=== PATIENT | male | born 1980 ===

== ENCOUNTER 2018-02-14 11:31 | Inpatient (IN) | payer OTHER, SELFPAY ==
[2018-02-14] MEDS ORDERED: Morphine 4 MG/ML VIAL ONE ×2 (11:59→13:41)
--- NOTE | 2018-02-14 11:59 | ED PDOC ---
HPI: General Adult Time Seen by Provider: 02/14/18 11:45 Chief Complaint (Nursing): Lower Extremity Problem/Injury Chief Complaint (Provider): right leg pain History Per: Patient, EMS, Other (co-worker) History/Exam Limitations: language barrier Onset/Duration Of Symptoms: Other (just prior to ED arrival) Have you had recent travel within the past 21 days to any of the following countries: [place], [place], [place] or [place]?: No Current Symptoms Are (Timing): Still Present Severity: Severe Pain Scale Rating Of: 6 Location: right leg Recent Trauma: no Additional History Per: EMS (and co-worker) Additional Complaint(s): Pt p/w + s/p wood beam fell on patient while at work, just prior to ED arrival; pt + felt immediate right leg pain; unable to stand; + intact sensations, no fever/chills/sweats, no cp/sob/palpitations, no abd pain, no n/v, no numbness/ tingling, no urinary/bowel changes, no bleeding; pt is here for further eval pt's without other complaints. PCP: none Past Medical History Reviewed: Historical Data, Nursing Documentation, Vital Signs Vital Signs: Last Vital Signs Temp 98.9 F 02/14/18 16:17 Pulse 90 02/14/18 17:35 Resp 18 02/14/18 17:35 BP 129/68 02/14/18 16:17 Pulse Ox 99 02/14/18 17:35 - Medical History PMH: Denies: Chronic Kidney Disease - Surgical History Other surgeries: right finger amputation - Family History Family History: States: Unknown Family Hx - Living Arrangements Living Arrangements: Alone - Social History Current smoker - smoking cessation education provided: No Ex-Smoker (has not smoked in the last 12 months): No Alcohol: None Drugs: Denies - Home Medications Home Medications: Ambulatory Orders Medication Instructions Recorded No Known Home Med 02/14/18 - Allergies Allergies/Adverse Reactions: Allergies Allergy/AdvReac Type Severity Reaction Status Date / Time No Known Allergies Allergy Verified 01/01/17 22:11 Review of Systems ROS Statement: Except As Marked, All Systems Reviewed And Found Negative Constitutional: Negative for: Fever, Weakness Eyes: Negative for: Pain ENT: Negative for: Ear Pain Cardiovascular: Negative for: Chest Pain Respiratory: Negative for: Cough, Shortness of Breath, SOB with Exertion Gastrointestinal: Negative for: Nausea, Vomiting, Abdominal Pain Musculoskeletal: Positive for: Other (right leg pain) Skin: Negative for: Rash Neurological: Negative for: Weakness Physical Exam - Reviewed Nursing Documentation Reviewed: Yes Vital Signs Reviewed: Yes (WNL) - Physical Exam Appears: Positive for: Well, Non-toxic, Uncomfortable (resting in bed, cooperative, NAD, uncomfortable, alert/awake, GCS=15, oriented x 3) Head Exam: Positive for: ATRAUMATIC, NORMAL INSPECTION, NORMOCEPHALIC Skin: Positive for: Normal Color (cap refill < 1sec, no ulcerations, no petechiae, no rashes), Warm, Dry Eye Exam: Positive for: Normal appearance, EOMI, PERRL ENT: Positive for: Normal ENT Inspection Neck: Positive for: Normal, Supple, Trachea Midline Cardiovascular/Chest: Positive for: Regular Rate, Rhythm, Chest Non Tender. Negative for: Murmur Respiratory: Positive for: Normal Breath Sounds, Other (CTA b/l, no w/r/r, no accessory muscle use noted, no tachypenia) Gastrointestinal/Abdominal: Positive for: Normal Exam, Bowel Sounds, Soft. Negative for: Tenderness Back: Positive for: Normal Inspection. Negative for: L CVA Tenderness, R CVA Tenderness Extremity: Positive for: Other (right distal tib/fib gross deformities noted; no open wounds/sores, no skin tinting noted, decr ROM to right knee/ankle; intact ROM to right toes, neurovasc intact b/l, +2/2 pulses b/l) Neurologic/Psych: Positive for: Alert, director of quality II-XII, Oriented - Laboratory Results Result Diagrams: 02/14/18 12:03 02/14/18 12:03 Interpretation Of Abnormal: elevated GLUC/CK - ECG ECG: Positive for: Interpreted By Me Interpretation Of ECG: NSR at 90 bpm, normal axis, no ectopy, no st-t changes, NORMAL EKG; no old ekg to compare with O2 Sat by Pulse Oximetry: 100 Pulse Ox Interpretation: Normal - Radiology X-Ray: Viewed By Me, Read By Radiologist - Progress ED Course And Treament: pt received pain medications, felt improved, states pain if not moved is tolerable 1:00pm - i spoke to ortho ordnance truck installation mechanic, made aware, will see patient, recommend patient to be temp casted with ortho glass with lots of webroll, to contact ortho pa, and will see patient; would like pt admitted to medicine 1:20pm - i spoke to bharat Miller, made aware, he will speak to ortho attending , but he is not ordnance truck installation mechanic currently 1:30pm - ortho ordnance truck installation mechanic suggests contacting podiatry resident, and would like a dedicated ankle xray 2:00pm - spoke to podiatry resident, will see patient 2:25pm - with podiatry residents assistance, able to secure a temp cast on pt's right lower leg with post splint technique using 5inch orthoglass 2:30pm - teacher of family and consumer science contacted, made aware, will see patient, agrees with admission repeate eval of b/l lower ext, + distal pulses noted, no skin discoloration, no gross swelling noted pt is comfortable after the splint pt is made aware of his medical results agrees with admission Re-evaluation Time: 14:00 Condition: Improving,but remains with symptoms - Physician Consult Information Time Consulting Physican Contacted: 13:00 Physician Contacted: Humza Mancia III (made aware, would like images txt to him and would like the bharat KIRKLAND contacted) Medical Decision Making Medical Decision Making: Impression: right leg pain i have consider all the differential diagnosis regarding pt's chief medical complaints/clinical findings, including but are not limited to: right leg pain A/P: right leg pain - labs - iv - xray - pain control - supportive care - observe Disposition - Clinical Impression Clinical Impression: Fracture of tibia, Closed fracture of shaft of tibia with fibula - Patient ED Disposition Is Patient to be Admitted: Yes Discussed With : family med Counseled Patient/Family Regarding: Studies Performed, Diagnosis, Rx Given - Disposition Disposition Time: 14:30 Condition: STABLE - Pt Status Changed To: Hospital Disposition Of: Inpatient - Admit Certification Admit to Inpatient:: After my assessment, the patient will require hospitalization for at least two midnights. This is because of the severity of symptoms shown, intensity of services needed, and/or the medical risk in this patient being treated as an outpatient.
[2018-02-14 12:16] LABS: BASO # 0.1 K/uL (0.0-0.2); BASO % 0.7 % (0.0-2.0); EOS # 0.1 K/uL (0.0-0.7); EOS % 0.7 % (0.0-4.0); HEMOGLOBIN 15.7 g/dL (12.0-18.0); LYMPH # 2.5 K/uL (1.0-4.3); MEAN CELL VOLUME 89.7 fl (80.0-94.0); MEAN CORPUSCULAR HEMOGLOBIN 30.3 pg (27.0-31.0); MEAN CORPUSCULAR HGB CONC 33.8 g/dL (33.0-37.0); MEAN PLATELET VOLUME 8.7 fl (7.2-11.7); MONO # 0.6 K/uL (0.0-0.8); MONO % 7.8 % (0.0-10.0); NEUT % 55.8 % (50.0-75.0); NRBC % 0.1 % (0.0-0.0); RBC 5.19 Mil/uL (4.40-5.90); RED CELL DISTRIBUTION WIDTH 13.9 % (11.5-14.5); WHITE BLOOD COUNT 7.2 K/uL (4.8-10.8)
[2018-02-14 12:21] LABS: INR 0.9 (0.9-1.2); PARTIAL THROMBOPLASTIN TIME 30.7 Seconds (25.6-37.1); PROTHROMBIN TIME 9.7 Seconds (9.8-13.1)
[2018-02-14 12:26] LABS: BLOOD UREA NITROGEN 25 mg/dl (9-20); GFR AFRICAN-AMERICAN > 60; GFR NON-AFRICAN AMERICAN > 60
--- NOTE | 2018-02-14 13:26 | RAD ---
PROCEDURE: Pelvis and right hip HISTORY: wood beam fell on leg COMPARISON: February 14, 2018. TECHNIQUE: Standard protocol for this study/examination. FINDINGS: There are no osseous abnormalities to suggest fracture. The pelvic ring is intact. Preserved femoral-acetabular relationship. Negative study for protrusio, subluxation or dislocation. Degenerative changes: None. IMPRESSION: No significant or acute findings to account for/ related to the clinical presentation.
--- NOTE | 2018-02-14 13:27 | RAD ---
PROCEDURE: Right Knee Radiographs. HISTORY: wood crain fell on leg COMPARISON: February 14, 2018. FINDINGS: BONES: Oblique proximal right fibular fracture. Major fracture fragments are distracted approximately 1 shaft's width. No appreciable angulation or impaction. JOINTS: Normal. No osteoarthritis. JOINT EFFUSION: None. OTHER FINDINGS: None. IMPRESSION: Acute spiral fracture non articular pillar proximal right fibula.
--- NOTE | 2018-02-14 13:28 | RAD ---
PROCEDURE: Radiographs of the right tibia and fibula. HISTORY: wood beam fell on leg COMPARISON: February 14, 2018. . TECHNIQUE: Frontal and lateral views obtained. FINDINGS: BONES: Oblique fractures of the proximal right fibula and distal tibia (Maisonneuve fracture. ) One shaft's with displacement of proximal fibular fracture. Half shaft's with displacement of the distal tibial fracture. Major fracture fragments are otherwise anatomically aligned. JOINT SPACES: Unremarkable. OTHER FINDINGS: None. IMPRESSION: Acute fractures distal right tibia at proximal right fibula.
--- NOTE | 2018-02-14 13:42 | RAD ---
PROCEDURE: Right Ankle Radiographs. HISTORY: wood beam fell on him COMPARISON: February 14, 2018. FINDINGS: BONES: Obliques fracture of the distal tibia. Approximately 1 shaft's with displacement of the major fracture fragments. More distal oblique fracture of the distal fibula. No appreciable angulation, impaction or distraction JOINTS: Normal. No osteoarthritis. Ankle mortise maintained. Talar dome intact SOFT TISSUES: Soft tissue swelling attests to the acuity of the fracture. OTHER FINDINGS: None. IMPRESSION: Spiral and acute fractures distal right tibia and fibula.
--- NOTE | 2018-02-14 14:37 | CP.PCM.CON ---
History of Present Illness - History of Present Illness History of Present Illness: Orthopedic Consult Note- Dr. Mancia 38 y/o male seen in ED after consultation for right leg injury. 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 Immediately was in significant pain and was unable to walk or bear weight. At present, denies numbness, tingling or burning in the leg. States his pain is a 6 out of 10. Denies F/C/N/V/CP/SOB PMHx: denies PSHx: appendectomy All: NKDA Social: denies EtOH, cigarette or drug use Review of Systems - Review of Systems All systems: reviewed and no additional remarkable complaints except (per HPI) Past Patient History - Past Medical History & Family History Past Medical History?: No - Past Social History Alcohol: None Drugs: Denies - CARDIAC Hx Cardiac Disorders: No - PULMONARY Hx Respiratory Disorders: No - NEUROLOGICAL Hx Neurological Disorder: No - HEENT Hx HEENT Problems: No - RENAL Hx Chronic Kidney Disease: No - ENDOCRINE/METABOLIC Hx Endocrine Disorders: No - HEMATOLOGICAL/ONCOLOGICAL Hx Blood Disorders: No - INTEGUMENTARY Hx Dermatological Problems: No - MUSCULOSKELETAL/RHEUMATOLOGICAL Hx Musculoskeletal Disorders: No - GASTROINTESTINAL Hx Gastrointestinal Disorders: No - GENITOURINARY/GYNECOLOGICAL Hx Genitourinary Disorders: No - PSYCHIATRIC Hx Psychophysiologic Disorder: No Hx Substance Use: No - SURGICAL HISTORY Hx Surgeries: No - ANESTHESIA Hx Anesthesia: No Hx Anesthesia Reactions: No Meds Allergies/Adverse Reactions: Allergies Allergy/AdvReac Type Severity Reaction Status Date / Time No Known Allergies Allergy Verified 01/01/17 22:11 Physical Exam - Constitutional Appears: Well, Non-toxic, No Acute Distress - Extremities Exam Additional comments: RLE focused exam: Vasc: DP/PT pulses 2/4. Temperature gradient warm to warm. CFT < 3 sec to all digits. Significant edema noted to RLE extending from tibial tuberosity to ankle joint. No cyanotic or ischemic skin changes evident Derm: no open lesions, no erythema, no ecchymosis, no fracture blisters, skin and soft tissue intact Ortho: Moderate tenderness to palpation of RLE distal to tibial tuberosity. Gross osseous deformity noted to mid level of tibia-fibula. Pt is able to dorsiflex at ankle joint, limited due to guarding. Pt able to wiggle toes Neuro: protective sensation grossly intact Results - Vital Signs Recent Vital Signs: Last Vital Signs Temp 97.4 F L 02/14/18 11:33 Pulse 71 02/14/18 11:33 Resp 16 02/14/18 11:33 BP 127/74 02/14/18 11:33 Pulse Ox 100 02/14/18 14:00 - Labs Result Diagrams: 02/14/18 12:03 02/14/18 12:03 Labs: Laboratory Results - last 24 hr 02/14/18 02/14/18 02/14/18 12:03 12:03 12:03 WBC 7.2 RBC 5.19 Hgb 15.7 Hct 46.5 MCV 89.7 MCH 30.3 MCHC 33.8 RDW 13.9 Plt Count 250 MPV 8.7 Neut % (Auto) 55.8 Lymph % (Auto) 35.0 [place] % (Auto) 7.8 Eos % (Auto) 0.7 Baso % (Auto) 0.7 Neut # (Auto) 4.0 Lymph # (Auto) 2.5 [place] # (Auto) 0.6 Eos # (Auto) 0.1 Baso # (Auto) 0.1 PT 9.7 L INR 0.9 APTT 30.7 Sodium 147 Potassium 4.1 Chloride 108 H Carbon Dioxide 23 Anion Gap 20 BUN 25 H Creatinine 1.0 Est GFR ( Amer) > 60 Est GFR (Non-Af Amer) > 60 Random Glucose 152 H Calcium 9.0 Total Creatine Kinase 190 H Assessment & Plan - Assessment and Plan (Free Text) Assessment: 38 y/o male with RLE comminuted proximal fibula fx, oblique distal fibula fx and displaced oblique distal tibia fx secondary to trauma Plan: Pt seen and evaluated in ED Posterior splint to RLE with crutches Pt not a good candidate for immediate surgical intervention due to significant edema Will monitor and proceed once swelling has decreased Discussed with attending Dr. Mancia Pt to be admitted under family medicine service and will be followed closely
--- NOTE | 2018-02-14 15:34 | CP.PCM.HP ---
<Devonte Holt - Last Filed: 02/14/18 15:48> History of Present Illness - History of Present Illness History of Present Illness: Pawan is a pleasant 38 yo M with no significant pmhx presents to the ED after sustaining an injury to his R lower extremity. He reports that while at work, he was repositioning when a wooden beam fell and hit his R leg below the knee. He reports falling afterwards. Pain was sharp, localized, 10/10. Denies open wound, bleeding, loss of ipsilateral leg/foot sensation, numbness, tingling. His gait and ability to bear weight is limited secondary to the injury. He denies CP/SOB/N/V. [facility] was [facility]. They evaluated the pt and placed a splint. With follow up XR and CT. PCP: Dr. Mclaughlin : [place] [phone] Pmhx: inguinal lymphadenopathy Psurg: appendectomy 2016 Famhx: none soc: lives at home with and daughter; denies: smoking, alcohol, illicit drugs Rx: none NKDA ER course: Vitals: 97.4 F; 71 bpm; 127/74; rr 16; 100 ra -XR knee: Acute spiral fracture non articular pillar proximal right fibula. -XR ankle: Spiral and acute fractures distal right tibia and fibula. -XR hip/pelvis: No significant or acute findings to account for/ related to the clinical presentation. -XR tibia/fibula: Acute fractures distal right tibia at proximal right fibula. -XR ankle f/u: s/p splint: pending -CT lower ext: s/p splint: pending official report -Rx: Morphine 4 mg IVP x2 -Admit to med surg Present on Admission - Present on Admission Any Indicators Present on Admission: No Review of Systems - Constitutional Constitutional: As Per HPI - Cardiovascular Cardiovascular: absent: Chest Pain, Lightheadedness, Palpitations - Respiratory Respiratory: absent: Cough, Dyspnea - Gastrointestinal Gastrointestinal: absent: Abdominal Pain, Constipation, Diarrhea, Nausea, Vomiting - Genitourinary Genitourinary: absent: Hematuria - Musculoskeletal Musculoskeletal: Abnormal Gait (2/2 injury), Radiating Pain into Limb. absent: Numbness, Tingling - Neurological Neurological: Abnormal Gait. absent: Headaches Past Patient History - Past Medical History & Family History Past Medical History?: No - Past Social History Smoking Status: Never Smoked Alcohol: None Drugs: Denies - CARDIAC Hx Cardiac Disorders: No - PULMONARY Hx Respiratory Disorders: No - NEUROLOGICAL Hx Neurological Disorder: No - HEENT Hx HEENT Problems: No - RENAL Hx Chronic Kidney Disease: No - ENDOCRINE/METABOLIC Hx Endocrine Disorders: No - HEMATOLOGICAL/ONCOLOGICAL Hx Blood Disorders: No - INTEGUMENTARY Hx Dermatological Problems: No - MUSCULOSKELETAL/RHEUMATOLOGICAL Hx Musculoskeletal Disorders: No - GASTROINTESTINAL Hx Gastrointestinal Disorders: No - GENITOURINARY/GYNECOLOGICAL Hx Genitourinary Disorders: No - PSYCHIATRIC Hx Psychophysiologic Disorder: No Hx Substance Use: No - SURGICAL HISTORY Hx Surgeries: Yes Hx Appendectomy: Yes - ANESTHESIA Hx Anesthesia: No Hx Anesthesia Reactions: No Meds Allergies/Adverse Reactions: Allergies Allergy/AdvReac Type Severity Reaction Status Date / Time No Known Allergies Allergy Verified 01/01/17 22:11 Physical Exam - Constitutional Appears: Well, No Acute Distress - Head Exam Head Exam: ATRAUMATIC - Eye Exam Eye Exam: EOMI - Neck Exam Neck exam: Positive for: Full Rom - Respiratory Exam Respiratory Exam: Clear to Auscultation Bilateral, NORMAL BREATHING PATTERN. absent: Wheezes - Cardiovascular Exam Cardiovascular Exam: REGULAR RHYTHM, +S1, +S2. absent: Systolic Murmur - GI/Abdominal Exam GI & Abdominal Exam: Normal Bowel Sounds - Neurological Exam Neurological exam: Abnormal Gait (R lower extremity: fracture: currently splint with wrapping by podiatry. Pt sensation to lower extremity intact. moves toes. able to lift lower extremity. cap refill <2 s), Alert, CN II-XII Intact, Oriented x3 - Psychiatric Exam Psychiatric exam: Normal Affect, Normal Mood Results - Vital Signs Recent Vital Signs: Last Vital Signs Temp 97.4 F L 02/14/18 11:33 Pulse 71 02/14/18 11:33 Resp 16 02/14/18 11:33 BP 127/74 02/14/18 11:33 Pulse Ox 100 02/14/18 14:00 - Labs Result Diagrams: 02/14/18 12:03 02/14/18 12:03 Labs: Laboratory Results - last 24 hr 02/14/18 02/14/18 02/14/18 12:03 12:03 12:03 WBC 7.2 RBC 5.19 Hgb 15.7 Hct 46.5 MCV 89.7 MCH 30.3 MCHC 33.8 RDW 13.9 Plt Count 250 MPV 8.7 Neut % (Auto) 55.8 Lymph % (Auto) 35.0 [place] % (Auto) 7.8 Eos % (Auto) 0.7 Baso % (Auto) 0.7 Neut # (Auto) 4.0 Lymph # (Auto) 2.5 [place] # (Auto) 0.6 Eos # (Auto) 0.1 Baso # (Auto) 0.1 PT 9.7 L INR 0.9 APTT 30.7 Sodium 147 Potassium 4.1 Chloride 108 H Carbon Dioxide 23 Anion Gap 20 BUN 25 H Creatinine 1.0 Est GFR ( Amer) > 60 Est GFR (Non-Af Amer) > 60 Random Glucose 152 H Calcium 9.0 Total Creatine Kinase 190 H Assessment & Plan - Assessment and Plan (Free Text) Assessment: 38 M with no significant pmhx presents with fractures to R fibula and tibia Plan: R Tibia and Fibia fractures -XR knee: Acute spiral fracture non articular pillar proximal right fibula. -XR ankle: Spiral and acute fractures distal right tibia and fibula. -XR hip/pelvis: No significant or acute findings to account for/ related to the clinical presentation. -XR tibia/fibula: Acute fractures distal right tibia at proximal right fibula. -XR ankle f/u: s/p splint: pending -CT lower ext: s/p splint: pending official report -s/p Rx: Morphine 4 mg IVP x2 ER -Morphine 4 mg IV q4 -Admit to med surg -Podiatry/Ortho: Pending surgery -non weight bearing -neuro check q 8 for R lower extremity -Surg clearance: CXR, EKG, PT/T INR, CBC, CMP DVT prophylaxis: - contraindication: pending surgery - non weight bearing <Roxi Jane - Last Filed: 02/15/18 09:47> Results - Vital Signs Recent Vital Signs: Last Vital Signs Temp 98.1 F 02/15/18 08:19 Pulse 86 02/15/18 08:19 Resp 18 02/15/18 08:19 BP 109/65 02/15/18 08:19 Pulse Ox 94 L 02/15/18 08:19 - Labs Result Diagrams: 02/15/18 05:05 02/15/18 05:05 Labs: Laboratory Results - last 24 hr 02/14/18 02/14/18 02/14/18 08:00 12:03 12:03 WBC 7.2 RBC 5.19 Hgb 15.7 Hct 46.5 MCV 89.7 MCH 30.3 MCHC 33.8 RDW 13.9 Plt Count 250 MPV 8.7 Neut % (Auto) 55.8 Lymph % (Auto) 35.0 [place] % (Auto) 7.8 Eos % (Auto) 0.7 Baso % (Auto) 0.7 Neut # (Auto) 4.0 Lymph # (Auto) 2.5 [place] # (Auto) 0.6 Eos # (Auto) 0.1 Baso # (Auto) 0.1 PT INR APTT Sodium 147 Potassium 4.1 Chloride 108 H Carbon Dioxide 23 Anion Gap 20 BUN 25 H Creatinine 1.0 Est GFR ( Amer) > 60 Est GFR (Non-Af Amer) > 60 Random Glucose 152 H Calcium 9.0 Total Bilirubin AST ALT Alkaline Phosphatase Total Creatine Kinase 190 H Total Protein Albumin Globulin Albumin/Globulin Ratio Urine Color Yellow Urine Clarity Slighty-cloudy Urine pH 5.0 Ur Specific [place] 1.031 H Urine Protein Negative Urine Glucose (UA) 50 Urine Ketones Negative Urine Blood Negative Urine Nitrate Negative Urine Bilirubin Negative Urine Urobilinogen 0.2-1.0 Ur Leukocyte Esterase Neg Urine RBC (Auto) 36 H Urine Microscopic WBC 3 Ur Squamous Epith Cells < 1 Calcium Oxalate Crystal Many H Hyaline Casts 0-2 Blood Type Antibody Screen BBK History Checked 02/14/18 02/14/18 02/14/18 12:03 16:00 16:00 WBC RBC Hgb Hct MCV MCH MCHC RDW Plt Count MPV Neut % (Auto) Lymph % (Auto) [place] % (Auto) Eos % (Auto) Baso % (Auto) Neut # (Auto) Lymph # (Auto) [place] # (Auto) Eos # (Auto) Baso # (Auto) PT 9.7 L 10.6 INR 0.9 1.0 APTT 30.7 30.0 Sodium Potassium Chloride Carbon Dioxide Anion Gap BUN Creatinine Est GFR ( Amer) Est GFR (Non-Af Amer) Random Glucose Calcium Total Bilirubin AST ALT Alkaline Phosphatase Total Creatine Kinase Total Protein Albumin Globulin Albumin/Globulin Ratio Urine Color Urine Clarity Urine pH Ur Specific [place] Urine Protein Urine Glucose (UA) Urine Ketones Urine Blood Urine Nitrate Urine Bilirubin Urine Urobilinogen Ur Leukocyte Esterase Urine RBC (Auto) Urine Microscopic WBC Ur Squamous Epith Cells Calcium Oxalate Crystal Hyaline Casts Blood Type O POSITIVE Antibody Screen Negative BBK History Checked No verified bt 02/15/18 02/15/18 05:05 05:05 WBC 10.1 RBC 4.79 Hgb 14.6 Hct 43.2 MCV 90.1 MCH 30.5 MCHC 33.8 RDW 14.1 Plt Count 226 MPV 9.1 Neut % (Auto) 62.3 Lymph % (Auto) 24.9 [place] % (Auto) 12.3 H Eos % (Auto) 0.2 Baso % (Auto) 0.3 Neut # (Auto) 6.3 Lymph # (Auto) 2.5 [place] # (Auto) 1.2 H Eos # (Auto) 0.0 Baso # (Auto) 0.0 PT INR APTT Sodium 143 Potassium 3.8 Chloride 103 Carbon Dioxide 27 Anion Gap 17 BUN 17 Creatinine 0.9 Est GFR ( Amer) > 60 Est GFR (Non-Af Amer) > 60 Random Glucose 118 H Calcium 8.9 Total Bilirubin 1.0 AST 34 ALT 78 H D Alkaline Phosphatase 75 Total Creatine Kinase Total Protein 6.9 Albumin 3.9 Globulin 3.0 Albumin/Globulin Ratio 1.3 Urine Color Urine Clarity Urine pH Ur Specific [place] Urine Protein Urine Glucose (UA) Urine Ketones Urine Blood Urine Nitrate Urine Bilirubin Urine Urobilinogen Ur Leukocyte Esterase Urine RBC (Auto) Urine Microscopic WBC Ur Squamous Epith Cells Calcium Oxalate Crystal Hyaline Casts Blood Type Antibody Screen BBK History Checked - PA / BILINGUAL CASE MANAGER / Resident Statement MARIELA has reviewed & agrees with the documentation as recorded. / has examined the patient and agrees with the treatment plan. (ATTENDING NOTE - ATTESTATION. PATIENT SEEN AND EXAMINED. CASE DISCUSSED WITH RESIDENT AGREE WITH FINDINGS AND PLAN)
--- NOTE | 2018-02-14 16:17 | CT ---
PROCEDURE: Right lower extremity CT HISTORY: Fracture right tibia and fibula COMPARISON: February 14, 2018. TECHNIQUE: 2.5 mm axial acquisition and display. Coronal and sagittal reconstructions. 3 volume rendering supplemental images Dose report (mGy-cm): 260.49 FINDINGS: 1. Comminuted fracture of the proximal fibula. The major fracture fragments demonstrate approximately 1 shaft's with separation. 2. Oblique fracture of the distal fibula, including comminuted without appreciable impaction, distraction, angulation. 3. Oblique distal fibular fracture displaying comminution and approximately 1/2 shaft's with over riding. No appreciable angulation, impaction or distraction. 4. Linear fracture through the distal fibula with an intra-articular component the of finding best visualized on axial series 3 images 159- 161. No disruption of the ankle mortise. No abnormalities with respect to the talus including the talar dome. Talotibial, talofibular articular relationships are maintained. No abnormalities visualize calcaneus. Diffuse soft tissue swelling at the fracture sites. Small suprapatellar joint effusion. IMPRESSION: Multiple fractures right tibia and fibula anatomically described above. The fracture not previously identified on plain film radiographs is the linear nondisplaced fracture of the distal tibia with an intra-articular component.
--- NOTE | 2018-02-14 16:25 | RAD ---
PROCEDURE: Right Ankle Radiographs. HISTORY: Postreduction radiographs COMPARISON: None FINDINGS: BONES: Improved anatomic alignment of distal tibial and fibular fractures. JOINTS: Normal. No osteoarthritis. Ankle mortise maintained. Talar dome intact SOFT TISSUES: Normal. OTHER FINDINGS: None. IMPRESSION: Improved anatomic alignment status post close reduction of right tibial and fibular fractures. Limitations of the current study: Detail obscured by overlying fiberglass cast.
[2018-02-14 16:37] LABS: PROTHROMBIN TIME 10.6 Seconds (9.8-13.1)
[2018-02-14] MEDS ORDERED: Influenza Vaccine 18yr & older 0.5 ML/45 MCG SYR IM ONE (18:30)
[2018-02-15] MEDS ORDERED: Sodium Chloride 0.9% 1,000 ML IV SCH
[2018-02-15] MEDS: Morphine 4 MG/ML VIAL IVP PRN ×3 (02:40→20:18)
[2018-02-15 07:37] LABS: BASO % 0.3 % (0.0-2.0); EOS % 0.2 % (0.0-4.0); HEMOGLOBIN 14.6 g/dL (12.0-18.0); LYMPH # 2.5 K/uL (1.0-4.3); LYMPH % 24.9 % (20.0-40.0); MEAN CELL VOLUME 90.1 fl (80.0-94.0); MEAN CORPUSCULAR HEMOGLOBIN 30.5 pg (27.0-31.0); MEAN CORPUSCULAR HGB CONC 33.8 g/dL (33.0-37.0); MEAN PLATELET VOLUME 9.1 fl (7.2-11.7); MONO # 1.2 K/uL (0.0-0.8); MONO % 12.3 % (0.0-10.0); NEUT # 6.3 K/uL (1.8-7.0); NEUT % 62.3 % (50.0-75.0); RBC 4.79 Mil/uL (4.40-5.90); RED CELL DISTRIBUTION WIDTH 14.1 % (11.5-14.5); WHITE BLOOD COUNT 10.1 K/uL (4.8-10.8)
[2018-02-15 07:49] LABS: ALB/GLOB RATIO 1.3 (1.0-2.1); ALBUMIN 3.9 g/dL (3.5-5.0); ALT/SGPT 78 U/L (21-72); AST/SGOT 34 U/L (17-59); BLOOD UREA NITROGEN 17 mg/dl (9-20); CALCIUM 8.9 mg/dL (8.4-10.2); GFR AFRICAN-AMERICAN > 60; GFR NON-AFRICAN AMERICAN > 60
--- NOTE | 2018-02-15 08:27 | CP.PCM.PN ---
<Ashley Rosales - Last Filed: 02/15/18 14:18> Subjective - Date & Time of Evaluation Date of Evaluation: 02/15/18 Time of Evaluation: 08:27 - Subjective Subjective: no overnight events. tolerating pain, well controlled with morphine. Eating/ drinking. Making UOP/BM. Objective - Vital Signs/Intake and Output Vital Signs (last 24 hours): Temp Pulse Resp BP Pulse Ox 98.1 F 86 18 109/65 94 L 02/15/18 08:19 02/15/18 08:19 02/15/18 08:19 02/15/18 08:19 02/15/18 08:19 - Medications Medications: Current Medications Acetaminophen (Tylenol 325mg Tab) 650 mg PO Q6 PRN PRN Reason: Pain, Mild (1-3) Morphine Sulfate (Morphine) 4 mg IVP Q4 PRN PRN Reason: Pain, moderate (4-7) Last Admin: 02/15/18 02:40 Dose: 4 mg - Labs Labs: 02/15/18 05:05 02/15/18 05:05 PT 10.6 Seconds (9.8-13.1) 02/14/18 16:00 INR 1.0 (0.9-1.2) 02/14/18 16:00 APTT 30.0 Seconds (25.6-37.1) 02/14/18 16:00 - Constitutional Appears: Well, No Acute Distress - Head Exam Head Exam: ATRAUMATIC, NORMAL INSPECTION - Eye Exam Eye Exam: Normal appearance - ENT Exam ENT Exam: Mucous Membranes Moist - Neck Exam Neck Exam: Full ROM, Normal Inspection - Respiratory Exam Respiratory Exam: Clear to Ausculation Bilateral - Cardiovascular Exam Cardiovascular Exam: REGULAR RHYTHM - GI/Abdominal Exam GI & Abdominal Exam: Soft. absent: Tenderness - Extremities Exam Extremities Exam: Normal Capillary Refill Additional comments: right LE splinted. motor/sensation grossly intact. - Back Exam Back Exam: NORMAL INSPECTION - Neurological Exam Neurological Exam: Alert, Oriented x3 - Skin Skin Exam: Dry, Warm Assessment and Plan - Assessment and Plan (Free Text) Assessment: A: 38yo M with no PMHx presents admitted for R tib-fib fx. Plan: OR Mon with Ortho R Tibia and Fibia fractures -XR knee: Acute spiral fracture non articular pillar proximal right fibula. -XR ankle: Spiral and acute fractures distal right tibia and fibula. -XR hip/pelvis: No significant or acute findings to account for/ related to the clinical presentation. -XR tibia/fibula: Acute fractures distal right tibia at proximal right fibula. -XR ankle f/u: s/p splint: improved orientation -CT lower ext: s/p splint: R tib/fib fx -Morphine 2mg or 4mg IV q4 -neuro check q 8 for R lower extremity -Surg clearance: pt medically optimized for surgery -Ortho Dr. Mancia c/s, appreciate input. OR saturday DVT prophylaxis - lovenox <Roxi Jane - Last Filed: 02/16/18 08:57> Objective - Vital Signs/Intake and Output Vital Signs (last 24 hours): Temp Pulse Resp BP Pulse Ox 98.6 F 82 20 105/65 99 02/16/18 08:35 02/16/18 08:35 02/16/18 08:35 02/16/18 08:35 02/16/18 08:35 - Medications Medications: Current Medications Acetaminophen (Tylenol 325mg Tab) 650 mg PO Q6 PRN PRN Reason: Pain, Mild (1-3) Enoxaparin Sodium (Lovenox) 40 mg SC DAILY [facility] PRN Reason: Protocol Last Admin: 02/16/18 08:33 Dose: 40 mg Morphine Sulfate (Morphine) 4 mg IVP Q4 PRN PRN Reason: Pain, moderate (4-7) Last Admin: 02/16/18 05:13 Dose: 4 mg - Labs Labs: 02/15/18 05:05 02/15/18 05:05 PT 10.6 Seconds (9.8-13.1) 02/14/18 16:00 INR 1.0 (0.9-1.2) 02/14/18 16:00 APTT 30.0 Seconds (25.6-37.1) 02/14/18 16:00 Attending/Attestation - Attestation I have personally seen and examined this patient.: Yes I have fully participated in the care of the patient.: Yes I have reviewed all pertinent clinical information, including history, physical exam and plan: Yes Notes (Text): 02/16/18 08:57 ATTENDING NOTE ATTESTATION. PATIENT SEEN AND EXAMINED. CASE DISCUSSED WITH RESIDENT. XRAYS REVIEWED. AGREE WITH FINDINGS AND PLAN.
[2018-02-15 09:27] LABS: SQUAMOUS EPITHIAL < 1 /hpf (0-5); URINE BILIRUBIN NEGATIVE (NEGATIVE); URINE BLOOD NEGATIVE (NEGATIVE); URINE CALCIUM OXALATE CRYSTALS MANY /hpf (<OCC); URINE CLARITY SLIGHTY-CLOUDY (Clear); URINE COLOR YELLOW (YELLOW); URINE GLUCOSE (UA) 50 mg/dL (Normal); URINE HYALINE CAST 0-2 /hpf (0-2); URINE LEUKOCYTE ESTERASE NEG Leu/uL (Negative); URINE PROTEIN NEGATIVE (NEGATIVE); URINE UROBILINOGEN 0.2-1.0 mg/dL (0.2-1.0)
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
--- NOTE | 2018-02-15 10:37 | CP.PCM.PN ---
Subjective - Date & Time of Evaluation Date of Evaluation: 02/15/18 Time of Evaluation: 10:15 - Subjective Subjective: Objective - Vital Signs/Intake and Output Vital Signs (last 24 hours): Temp Pulse Resp BP Pulse Ox 98.1 F 86 18 109/65 94 L 02/15/18 08:19 02/15/18 08:19 02/15/18 08:19 02/15/18 08:19 02/15/18 08:19 - Medications Medications: Current Medications Acetaminophen (Tylenol 325mg Tab) 650 mg PO Q6 PRN PRN Reason: Pain, Mild (1-3) Enoxaparin Sodium (Lovenox) 40 mg SC DAILY [facility] PRN Reason: Protocol Morphine Sulfate (Morphine) 4 mg IVP Q4 PRN PRN Reason: Pain, moderate (4-7) Last Admin: 02/15/18 02:40 Dose: 4 mg - Labs Labs: 02/15/18 05:05 02/15/18 05:05 PT 10.6 Seconds (9.8-13.1) 02/14/18 16:00 INR 1.0 (0.9-1.2) 02/14/18 16:00 APTT 30.0 Seconds (25.6-37.1) 02/14/18 16:00 - Additional Findings Additional findings: Obj systemic- wnl no evidence for thrombvoemboilic disease Muasculoskekltal' astqance/gait- defrred/R lower ext still swollen N/V intact no evidence for compartment ysndrome No increased pain on passive flexion/dorsiflexion Xray/CT scan again reviewed- reveals displaced/comminuted tibial shaft fx and prox and distal fibula fx Assessment and Plan - Assessment and Plan (Free Text) Assessment: A- closed fx: displaced/angulated distal fibula fx/angulated distal 1/3 tibia fx P- elevate/ice to OR Saturday for ORIF tibial shaft fx and ORIF distal fibula fx/ closed mggmt of prox fibula fx pros/cons/risk and benefits 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
[2018-02-15] MEDS: Enoxaparin 40 mg Syringe SC SCH (11:01)
[2018-02-16] MEDS: Morphine 4 MG/ML VIAL IVP PRN ×2 (05:13→20:06)
[2018-02-16] MEDS: Enoxaparin 40 mg Syringe SC SCH (08:33)
--- NOTE | 2018-02-16 11:37 | CP.PCM.PN ---
Subjective - Date & Time of Evaluation Date of Evaluation: 02/16/18 Time of Evaluation: 11:05 - Subjective Subjective: S-pt comfortanle at bedrest; no signs of compartment syndrome; there is still evidence of massive swelling with skIN compromise. No evidence for compartment syndrome ( nO INCREASED PAIN ON PASSIVE FLEXION/DORSIFLEXION; NO PAIN OUT OF PROPORTION) Objective - Vital Signs/Intake and Output Vital Signs (last 24 hours): Temp Pulse Resp BP Pulse Ox 98.6 F 82 20 105/65 99 02/16/18 08:35 02/16/18 08:35 02/16/18 08:35 02/16/18 08:35 02/16/18 08:35 - Medications Medications: Current Medications Acetaminophen (Tylenol 325mg Tab) 650 mg PO Q6 PRN PRN Reason: Pain, Mild (1-3) Enoxaparin Sodium (Lovenox) 40 mg SC DAILY [facility] PRN Reason: Protocol Last Admin: 02/16/18 08:33 Dose: 40 mg Morphine Sulfate (Morphine) 4 mg IVP Q4 PRN PRN Reason: Pain, moderate (4-7) Last Admin: 02/16/18 05:13 Dose: 4 mg - Labs Labs: 02/15/18 05:05 02/15/18 05:05 PT 10.6 Seconds (9.8-13.1) 02/14/18 16:00 INR 1.0 (0.9-1.2) 02/14/18 16:00 APTT 30.0 Seconds (25.6-37.1) 02/14/18 16:00 - Additional Findings Additional findings: oBJECTIVE SYSTEMIC WNL muSCULOSKEKLTAL STANCE/GAIT- DEFRRED LIMB not EL;EVATED INSTRUCTED mASSIVE SWELLING PERSISTS No evidence for compartment syndrome/ no evidence or indication for compartment pressure monitoring Although was closed fx, skin tenuous in midshaft tibia, where beam struck pt' NO INCREASED PAIN ON PASSIVE FLEXION DORSIFLEXION OF TOES NO PAIN OUT OF PROPORTION- PT RELATIVELY COMFORTBALE AT BEDREST( although limb not elevated/ no ice applied) pulse palpable pt able to dorsiflex/plantar flex and wiggle toes Assessment and Plan - Assessment and Plan (Free Text) Assessment: A-mid to distal 1/3 tibia fx fx fibual (distal) fx fibula (proximal) P- because of skin condition(although this is not an open fracture)-because of massive swelling ( without compartment syndrome) - pt will be takern to OR tomorrow for closed redcution and compartment pressure monitoring Pros /cons, risk and befits discusseed at length with the pt thru a culturally competent technology lab teacher (estephania= technology lab teacher on in demand svc) Possibility, even the likelihood of secondary ORIF or intramedukkary tibial rodding and ORIF and p[ lating of one or mnore fibula fractures discussed NO PROMISES/GUARANTEES
--- NOTE | 2018-02-16 15:42 | CP.PCM.PN ---
<Devonte Holt - Last Filed: 02/16/18 15:38> Subjective - Date & Time of Evaluation Date of Evaluation: 02/16/18 Time of Evaluation: 09:30 - Subjective Subjective: pt seen and examined at bedside; denies significant overnight events. tolerating pain well with morphine. Denies cp/sob/n/v; Objective - Vital Signs/Intake and Output Vital Signs (last 24 hours): Temp Pulse Resp BP Pulse Ox 98.6 F 90 20 101/64 98 02/16/18 15:36 02/16/18 15:36 02/16/18 15:36 02/16/18 15:36 02/16/18 15:36 - Medications Medications: Current Medications Acetaminophen (Tylenol 325mg Tab) 650 mg PO Q6 PRN PRN Reason: Pain, Mild (1-3) Docusate Sodium (Colace) 100 mg PO DAILY [facility] Last Admin: 02/16/18 13:15 Dose: 100 mg Enoxaparin Sodium (Lovenox) 40 mg SC DAILY [facility] PRN Reason: Protocol Last Admin: 02/16/18 08:33 Dose: 40 mg Morphine Sulfate (Morphine) 4 mg IVP Q4 PRN PRN Reason: Pain, moderate (4-7) Last Admin: 02/16/18 05:13 Dose: 4 mg - Labs Labs: 02/15/18 05:05 02/15/18 05:05 PT 10.6 Seconds (9.8-13.1) 02/14/18 16:00 INR 1.0 (0.9-1.2) 02/14/18 16:00 APTT 30.0 Seconds (25.6-37.1) 02/14/18 16:00 - Constitutional Appears: Well, No Acute Distress - Eye Exam Eye Exam: EOMI - Respiratory Exam Respiratory Exam: Clear to Ausculation Bilateral, NORMAL BREATHING PATTERN. absent: Wheezes - Cardiovascular Exam Cardiovascular Exam: REGULAR RHYTHM, +S1, +S2 - GI/Abdominal Exam GI & Abdominal Exam: Soft, Normal Bowel Sounds. absent: Tenderness - Extremities Exam Extremities Exam: absent: Calf Tenderness Additional comments: L lower extremity splint. sensation intact. pt able to move digits. motor grossly intact. - Neurological Exam Neurological Exam: Alert, Awake, CN II-XII Intact, Oriented x3 - Psychiatric Exam Psychiatric exam: Normal Affect, Normal Mood Assessment and Plan - Assessment and Plan (Free Text) Plan: A: 38yo M with no PMHx presents admitted for R tib-fib fx. OR Mon with Ortho R Tibia and Fibia fractures -XR knee: Acute spiral fracture non articular pillar proximal right fibula. -XR ankle: Spiral and acute fractures distal right tibia and fibula. -XR hip/pelvis: No significant or acute findings to account for/ related to the clinical presentation. -XR tibia/fibula: Acute fractures distal right tibia at proximal right fibula. -XR ankle f/u: s/p splint: improved orientation -CT lower ext: s/p splint: R tib/fib fx -cxr: no active pulmonary dz -Morphine 2mg or 4mg IV q4 -neuro check q 8 for R lower extremity -Surg clearance: pt medically optimized for surgery -Ortho Dr. Mancia c/s, appreciate input. OR saturday DVT prophylaxis - lovenox dc today for surgery on 02/16/2018 <Roxi Jane - Last Filed: 02/17/18 07:03> Objective - Vital Signs/Intake and Output Vital Signs (last 24 hours): Temp Pulse Resp BP Pulse Ox 98.2 F 75 19 124/68 98 02/17/18 06:05 02/17/18 06:05 02/17/18 06:05 02/17/18 06:05 02/17/18 06:05 - Medications Medications: Current Medications Acetaminophen (Tylenol 325mg Tab) 650 mg PO Q6 PRN PRN Reason: Pain, Mild (1-3) Docusate Sodium (Colace) 100 mg PO DAILY [facility] Last Admin: 02/16/18 13:15 Dose: 100 mg Enoxaparin Sodium (Lovenox) 40 mg SC DAILY [facility] PRN Reason: Protocol Last Admin: 02/16/18 08:33 Dose: 40 mg Morphine Sulfate (Morphine) 4 mg IVP Q4 PRN PRN Reason: Pain, moderate (4-7) Last Admin: 02/16/18 20:06 Dose: 4 mg - Labs Labs: 02/15/18 05:05 02/15/18 05:05 PT 10.6 Seconds (9.8-13.1) 02/14/18 16:00 INR 1.0 (0.9-1.2) 02/14/18 16:00 APTT 30.0 Seconds (25.6-37.1) 02/14/18 16:00 Attending/Attestation - Attestation I have personally seen and examined this patient.: Yes I have fully participated in the care of the patient.: Yes I have reviewed all pertinent clinical information, including history, physical exam and plan: Yes Notes (Text): 02/17/18 07:03 ATTENDING NOTE ATTESTATION. PATIENT SEEN AND EXAMINED. CASE DISCUSSED WITH RESIDENT. SURGERY IS SCHEDULE FOR Saturday02/17/18 NOT 02/16 STATED IN RESIDENT NOTE. AGREE WITH FINDINGS AND PLAN.
[2018-02-17 07:14] LABS: HEMOGLOBIN 14.6 g/dL (12.0-18.0); MEAN CELL VOLUME 89.5 fl (80.0-94.0); MEAN CORPUSCULAR HEMOGLOBIN 29.9 pg (27.0-31.0); MEAN CORPUSCULAR HGB CONC 33.4 g/dL (33.0-37.0); RBC 4.87 Mil/uL (4.40-5.90); RED CELL DISTRIBUTION WIDTH 13.7 % (11.5-14.5); WHITE BLOOD COUNT 9.3 K/uL (4.8-10.8)
[2018-02-17] MEDS ORDERED: Sodium Chloride 0.9% 1,000 ML IV SCH (07:15)
[2018-02-17] MEDS ORDERED: Propofol 10 mg/ml Inj (20 ML) ONE (07:30)
[2018-02-17] MEDS ORDERED: Midazolam 2 MG/2 ML VIAL ONE (07:30)
[2018-02-17] MEDS ORDERED: Succinylcholine 200 mg/10 ml Inj IV ONE (07:30)
[2018-02-17] MEDS ORDERED: Lidocaine 1% 5ml Abboject IV ONE (07:31)
[2018-02-17 07:35] LABS: ALB/GLOB RATIO 1.2 (1.0-2.1); ALBUMIN 3.9 g/dL (3.5-5.0); ALT/SGPT 83 U/L (21-72); AST/SGOT 72 U/L (17-59); BLOOD UREA NITROGEN 16 mg/dl (9-20); CALCIUM 9.2 mg/dL (8.4-10.2); GFR AFRICAN-AMERICAN > 60; GFR NON-AFRICAN AMERICAN > 60
[2018-02-17] MEDS ORDERED: Bupivacaine HCl 0.25% PF (30 ml) Inj ONE (07:44)
[2018-02-17] MEDS: Lactated Ringer's 1,000 ML IV ONE ×2 (07:45→10:40)
[2018-02-17] MEDS ORDERED: Lidocaine 4% (Laryng-O-Jet) Kit MM ONE (07:45)
[2018-02-17] MEDS ORDERED: Morphine 4 MG/ML VIAL IVP PRN (08:35)
--- NOTE | 2018-02-17 08:40 | PCM.SURG1 ---
Surgeon's Initial Post Op Note - Surgeon's Notes Surgeon: Gavino Motor Brakeman: KOBE Lopes/ 2nd assist Paul Mccullough (PA-C) Type of Anesthesia: General Endo Anesthesia Administered By: DR Estrada Pre-Operative Diagnosis: displaced/angulated tibia fx. segmental/comminuted fibula fracture. R/O compartment syndrome Operative Findings: as above. NO EVIDENCE FOR COMPARTMENT SYNDROME. SKIN COMPROMISE WITYHOUT OPEN FX AT ANTERIOR ASPECT TIBIA. MULTIPLE FRACTURE BLISTERS TIBIA Post-Operative Diagnosis: ABOVE Operation Performed: 4 [id number] PRESSURE MONITORING. DISPLACED/ANGULATED MID TO DISTAL 1/3 TIBIA FX. SEGMENTAL FIBULA FX-. CLOSED RDDUCTION AND APPLX LONG LEG CAST Specimen/Specimens Removed: N/A Estimated Blood Loss: EBL {In ML}: 0 Drains Used: No Drains Post-Op Condition: Good Date of Surgery/Procedure: 02/17/18 Time of Surgery/Procedure: 08:05 (TIME IN ROOM 7:45)
[2018-02-17] MEDS ORDERED: Lactated Ringer's 1,000 ML IV SCH (08:45)
[2018-02-17] MEDS ORDERED: Oxycodone/Acetaminophen 5/325 mg Tab PO PRN (08:50)
--- NOTE | 2018-02-17 10:07 | CP.PCM.PN ---
Subjective - Date & Time of Evaluation Date of Evaluation: 02/17/18 Time of Evaluation: 08:30 Objective - Vital Signs/Intake and Output Vital Signs (last 24 hours): Temp Pulse Resp BP Pulse Ox 98.9 F 88 18 119/67 99 02/17/18 09:20 02/17/18 09:35 02/17/18 09:35 02/17/18 09:35 02/17/18 09:35 Intake and Output: 02/17/18 02/17/18 06:59 18:59 Intake Total 200 Balance 200 - Medications Medications: Current Medications Acetaminophen (Tylenol 325mg Tab) 650 mg PO Q6 PRN PRN Reason: Pain, Mild (1-3) Docusate Sodium (Colace) 100 mg PO DAILY [facility] Last Admin: 02/17/18 08:17 Dose: Not Given Enoxaparin Sodium (Lovenox) 40 mg SC DAILY [facility] PRN Reason: Protocol Last Admin: 02/16/18 08:33 Dose: 40 mg Sodium Chloride (Sodium Chloride 0.9%) 1,000 mls @ 125 mls/hr IV .Q8H [facility] Stop: 02/18/18 07:06 Last Admin: 02/17/18 07:17 Dose: Not Given Lactated Ringer's (Lactated Ringer's) 1,000 mls @ 100 mls/hr IV .Q10H [facility] Last Admin: 02/17/18 08:35 Dose: 0 mls Morphine Sulfate (Morphine) 4 mg IVP Q4 PRN PRN Reason: Pain, moderate (4-7) Last Admin: 02/16/18 20:06 Dose: 4 mg Morphine Sulfate (Morphine) 2 mg IVP Q10M PRN PRN Reason: Pain, moderate (4-7) Stop: 02/17/18 10:35 Last Admin: 02/17/18 09:30 Dose: 2 mg Ondansetron HCl (Zofran Inj) 4 mg IVP ONCE PRN PRN Reason: Nausea/Vomiting Stop: 02/17/18 10:36 Oxycodone/Acetaminophen (Percocet 5/325 Mg Tab) 2 tab PO Q4 PRN PRN Reason: Pain, severe (8-10) Stop: 02/20/18 08:51 - Labs Labs: 02/17/18 05:30 02/17/18 05:30 PT 10.6 Seconds (9.8-13.1) 02/14/18 16:00 INR 1.0 (0.9-1.2) 02/14/18 16:00 APTT 30.0 Seconds (25.6-37.1) 02/14/18 16:00
--- NOTE | 2018-02-17 10:20 | RAD ---
PROCEDURE: Radiographs of the right tibia and fibula. HISTORY: s/p closed reduction tib/fib fx COMPARISON: None available. TECHNIQUE: Frontal and lateral views obtained. FINDINGS: Distal right lower extremity cast history of present, limiting evaluation of fine bony detail. The previously described comminuted distal tibial and proximal and distal fibular fractures are redemonstrated without significant change in appearance or alignment. Fracture components are still displaced and angulated. IMPRESSION: Persistent displacement and angulation of tibial and fibular fractures.
--- NOTE | 2018-02-17 11:24 | RAD ---
PROCEDURE: Fluoroscopy up to 1 hr. HISTORY: RIGHT TIB FIB CLOSED REDUCTION COMPARISON: None TECHNIQUE: Standard protocol for this study/examination. FINDINGS: Total fluoroscopic time (continuous mode) utilized during the procedure 21.6 (seconds). IMPRESSION: Less than 1 hr fluoroscopic time utilized during performance of the procedure.
--- NOTE | 2018-02-17 13:45 | CARD ---
APPROVED REPORT EKG Measurement Heart [id number] <Conclusion> Normal sinus rhythm Normal ECG
--- NOTE | 2018-02-17 14:07 | CP.PCM.DIS ---
Provider - Provider Date of Admission: 02/14/18 14:00 Attending physician: Roxi aJne MD Time Spent in preparation of Discharge (in minutes): 20 Diagnosis - Discharge Diagnosis (1) Closed fracture of shaft of tibia with fibula Status: Acute Hospital Course - Lab Results Lab Results: Most Recent Lab Values WBC 9.3 K/uL (4.8-10.8) 02/17/18 05:30 RBC 4.87 Mil/uL (4.40-5.90) 02/17/18 05:30 Hgb 14.6 g/dL (12.0-18.0) 02/17/18 05:30 Hct 43.6 % (35.0-51.0) 02/17/18 05:30 MCV 89.5 fl (80.0-94.0) 02/17/18 05:30 MCH 29.9 pg (27.0-31.0) 02/17/18 05:30 MCHC 33.4 g/dL (33.0-37.0) 02/17/18 05:30 RDW 13.7 % (11.5-14.5) 02/17/18 05:30 Plt Count 251 K/uL (130-400) 02/17/18 05:30 MPV 9.1 fl (7.2-11.7) 02/15/18 05:05 Neut % (Auto) 62.3 % (50.0-75.0) 02/15/18 05:05 Lymph % (Auto) 24.9 % (20.0-40.0) 02/15/18 05:05 [place] % (Auto) 12.3 % (0.0-10.0) H 02/15/18 05:05 Eos % (Auto) 0.2 % (0.0-4.0) 02/15/18 05:05 Baso % (Auto) 0.3 % (0.0-2.0) 02/15/18 05:05 Neut # (Auto) 6.3 K/uL (1.8-7.0) 02/15/18 05:05 Lymph # (Auto) 2.5 K/uL (1.0-4.3) 02/15/18 05:05 [place] # (Auto) 1.2 K/uL (0.0-0.8) H 02/15/18 05:05 Eos # (Auto) 0.0 K/uL (0.0-0.7) 02/15/18 05:05 Baso # (Auto) 0.0 K/uL (0.0-0.2) 02/15/18 05:05 PT 10.6 Seconds (9.8-13.1) 02/14/18 16:00 INR 1.0 (0.9-1.2) 02/14/18 16:00 APTT 30.0 Seconds (25.6-37.1) 02/14/18 16:00 Sodium 144 mmol/l (132-148) 02/17/18 05:30 Potassium 4.0 MMOL/L (3.6-5.0) 02/17/18 05:30 Chloride 99 mmol/L (98-107) 02/17/18 05:30 Carbon Dioxide 30 mmol/L (22-30) 02/17/18 05:30 Anion Gap 19 (10-20) 02/17/18 05:30 BUN 16 mg/dl (9-20) 02/17/18 05:30 Creatinine 0.9 mg/dl (0.8-1.5) 02/17/18 05:30 Est GFR ( Amer) > 60 02/17/18 05:30 Est GFR (Non-Af Amer) > 60 02/17/18 05:30 Random Glucose 115 mg/dL (75-110) H 02/17/18 05:30 Calcium 9.2 mg/dL (8.4-10.2) 02/17/18 05:30 Total Bilirubin 1.0 mg/dl (0.2-1.3) 02/17/18 05:30 AST 72 U/L (17-59) H D 02/17/18 05:30 ALT 83 U/L (21-72) H 02/17/18 05:30 Alkaline Phosphatase 70 U/L (38-126) 02/17/18 05:30 Total Creatine Kinase 190 U/L (55-170) H 02/14/18 12:03 Total Protein 7.3 G/DL (6.3-8.2) 02/17/18 05:30 Albumin 3.9 g/dL (3.5-5.0) 02/17/18 05:30 Globulin 3.4 gm/dL (2.2-3.9) 02/17/18 05:30 Albumin/Globulin Ratio 1.2 (1.0-2.1) 02/17/18 05:30 Urine Color Yellow (YELLOW) 02/14/18 08:00 Urine Clarity Slighty-cloudy (Clear) 02/14/18 08:00 Urine pH 5.0 (5.0-8.0) 02/14/18 08:00 Ur Specific [place] 1.031 (1.003-1.030) H 02/14/18 08:00 Urine Protein Negative mg/dL (NEGATIVE) 02/14/18 08:00 Urine Glucose (UA) 50 mg/dL (Normal) 02/14/18 08:00 Urine Ketones Negative mg/dL (NEGATIVE) 02/14/18 08:00 Urine Blood Negative (NEGATIVE) 02/14/18 08:00 Urine Nitrate Negative (NEGATIVE) 02/14/18 08:00 Urine Bilirubin Negative (NEGATIVE) 02/14/18 08:00 Urine Urobilinogen 0.2-1.0 mg/dL (0.2-1.0) 02/14/18 08:00 Ur Leukocyte Esterase Neg [place]/uL (Negative) 02/14/18 08:00 Urine RBC (Auto) 36 /hpf (0-3) H 02/14/18 08:00 Urine Microscopic WBC 3 /hpf (0-5) 02/14/18 08:00 Ur Squamous Epith Cells < 1 /hpf (0-5) 02/14/18 08:00 Calcium Oxalate Crystal Many /hpf (<OCC) H 02/14/18 08:00 Hyaline Casts 0-2 /hpf (0-2) 02/14/18 08:00 Blood Type O POSITIVE 02/14/18 16:00 Blood Type Confirm O POSITIVE 02/15/18 18:29 Antibody Screen Negative 02/14/18 16:00 BBK History Checked No verified bt 02/14/18 16:00 - Hospital Course Hospital Course: 38yo M with no PMHx presents admitted for R tib-fib fx. s/p close reduction and long leg casting with compartment syndrome monitoring; PT/OT: pt discharged with percocet 5/325mg 1-2 po q 6 #30. Pt denies stairs at home; Reports is available for assistance. No home PT at this time. May require in the future. Discharge Exam - Head Exam Head Exam: ATRAUMATIC, NORMAL INSPECTION - Eye Exam Eye Exam: EOMI - Neck Exam Neck exam: Full Rom - Respiratory Exam Respiratory Exam: Clear to PA & Lateral, UNREMARKABLE. absent: Wheezes - Cardiovascular Exam Cardiovascular Exam: REGULAR RHYTHM, +S1, +S2 - GI/Abdominal Exam GI & Abdominal Exam: Normal Bowel Sounds, Soft. absent: Tenderness - Neurological Exam Neurological exam: Abnormal Gait, Alert, CN II-XII Intact, Oriented x3 Additional comments: s/p close reduction - Psychiatric Exam Psychiatric exam: Normal Affect, Normal Mood Discharge Plan - Discharge Medications Prescriptions: Docusate [Colace] 100 mg PO DAILY #5 cap oxyCODONE/Acetaminophen [Percocet 5/325 mg Tab] 1 - 2 ea PO Q6 PRN #30 tab PRN Reason: Pain, Severe (8-10) - Follow Up Plan Condition: STABLE Disposition: HOME/ ROUTINE Patient education suggested?: Yes Instructions: Tibia Fracture Additional Instructions: Please follow up with Dr. Anthony tomorrow for clinic and with Dr. Mclaughlin on at 03:40. Por favor tienes citas: Con [place] Dr. Anthony [facility] Con [facility] doctor general el 2017 a 03:40. Referrals: Humza Mancia III, MD [Staff Provider] -
[2018-02-17 14:57] LABS: INR 1.1 (0.9-1.2)
[2018-02-17 15:40] VITALS: BP 112/66; PULSE 81; RESP 20; TEMP 98.6; O2SAT 96
--- NOTE | 2018-02-25 06:58 | OP ---
PROCEDURE DATE: 02/17/2018 PREOPERATIVE DIAGNOSES: 1. Non-displaced angulated tibia. 2. Segmental fibular fracture. 3. Rule out compartment syndrome. POSTOPERATIVE DIAGNOSES: 1. Displaced angulated distal tibia fracture. 2. Segmental fibular fracture. 3. No evidence for any other compartment syndrome open fracture. PROCEDURE: COMPARTMENT PRESSURE MONITORING. DISPLACED/ANGULATED MID TO DISTAL 1/3 TIBIA FX. SEGMENTAL FIBULA FX-. CLOSED REDUCTION AND APPLICATION LONG LEG CAST SURGEON: Humza Mancia MD Internet Cafe Manager: KOBE Lopes/ 2nd assist Paul Mccullough (TONNY) Type of Anesthesia: General Endo Anesthesia Administered By: DR Estrada SPECIMEN: None BLOOD LOSS: None DRAINS: No drains. 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 The patient states that a beam fell on the patient's tibia and fracture is noted. The patient was transferred to the Emergency Department at [facility]. The patient was admitted and was elevated. There was no evidence for compartment syndrome. In the emergency room, a splint was applied. The patient was elevated over the weekend and was taken to surgery on Saturday. When the splint was removed and the wound was evaluated, the patient was certainly not a candidate for an open reduction at this point in time either limited open reduction with intramedullary interlocking nail or open reduction of the tibia with the plate and the fibula with the plate. At this point in time, compartment pressure monitoring is accomplished in close reduction. Pros, cons, risks, and benefits of surgery approach were discussed through the culturally competent jukebox coin collector with a voice and image toll testboard worker who is culturally competent. This was accomplished and the patient was taken to surgery. DESCRIPTION OF PROCEDURE: After having obtained informed consent in the above fashion, after having identified side, site and procedure and critical pause/time-out, after the satisfactory induction of the anesthetic, the patient identified as Pawan Mishra in the supine position with all bony prominences well padded. The right lower extremity was positioned under the surgeon's direction, a fluoroscope was positioned, video images were generated, and therapeutic decisions were made therefrom. This having been accomplished, it should be noted that the compartment pressure monitoring was accomplished using the [employer] compartment pressure monitoring device. The foreleg was prepped and free draped and this having been accomplished after having Betadine sterilely the area beginning with the anterior compartment, a compartment pressure monitor was primed. A 3 mL of saline was introduced into the device, the device was working and it was calibrated. This having been accomplished after sterilely prepping, the anterior compartment was entered with the needle from the [place] compartment pressure monitoring device. 0.3 mL of saline was introduced and compartment pressure of approximately 28 mmHg. Attention was now turned to the straight lateral compartment in the area of the mid shaft taking great care to avoid injury to the peroneal nerve. The needle was likewise introduced, 0.3 mL of saline was introduced, and the compartment pressure was found to be approximately 30. Going to the medial side, the superficial compartment was entered, 0.3 mL of saline was introduced and the pressure was approximately 49. Finally, the deep posterior compartment was accessed. Great care was taken to avoid injury to any neurocirculatory structures and the compartment pressure was approximately 31 mmHg. It should be noted that the patient had no clinical signs of compartment pressure elevation over the weekend. Clinically, the capillary refill was intact. Pulses were palpable. There was increased pain obtained with passive flexion and dorsiflexion of the ankle and toes, although the patient did not have pain out of proportion, which was not controlled with mild analgesia. This having been accomplished, the right lower extremity was positioned and with the help of PA, reduction was accomplished using traction with a minimal amount of knee flexion. A well-padded well light cast was applied using the 4 and 5-inch fiberglass casting material. Verification of the position was offered on AP and lateral image intensification views. This having been accomplished, the position was found to be improved, but not acceptable in my opinion because of the abrasion of the skin on the anterior aspect of the tibia. This having been the situation, the patient was discharged from hospital after transfer from the operating room table to the stretcher having tolerated the procedure well. The plan is to discharge and to readmission after the swelling goes down and the skin is improved. Pros, cons, risks and benefits of the same had been discussed. The concept of a possible, indeed probable secondary surgical procedure was discussed with the patient and he was fully aware of this and accepted the procedure. The patient's neurocirculatory status was intact in recovery and postoperative x-rays were reviewed. Humza Mancia MD [facility] # [id number]
== END 2018-02-17 17:46 | disposition home or self-care (01) | DRG 563 ==
LOC: H.ER 11:31 → H.ERHOLD 14:00 → H.MEDSURG1 16:27
PROVIDERS: ADMIT Emergency Medicine; ATTEND Emergency Medicine
PROC: 3E0234Z Introduction of Serum, Toxoid and Vaccine into Muscle, Percutaneous Approach (ICD-10-PCS; principal; 2018-02-14)
PROC: 0QSJXZZ Reposition Right Fibula, External Approach (ICD-10-PCS; 2018-02-17)
PROC: 0QSGXZZ Reposition Right Tibia, External Approach (ICD-10-PCS; 2018-02-17)
DX: S82.451A Displaced comminuted fracture of shaft of right fibula, initial encounter for closed fracture (principal); S82.301A Unspecified fracture of lower end of right tibia, initial encounter for closed fracture; W20.8XXA Other cause of strike by thrown, projected or falling object, initial encounter; Y92.69 Other specified industrial and construction area as the place of occurrence of the external cause; Y99.0 Civilian activity done for income or pay; S82.831A Other fracture of upper and lower end of right fibula, initial encounter for closed fracture; Z23 Encounter for immunization

== ENCOUNTER 2018-02-25 10:54 | Observation (INO) | payer OTHER, SELFPAY ==
[2018-02-24 10:36] VITALS: BMI 25.8
[2018-02-25 12:14] LABS: URINE AMORPHOUS SEDIMENT MODERATE /ul (<OCC); URINE BACTERIA OCC (<OCC); URINE BILIRUBIN NEGATIVE (NEGATIVE); URINE BLOOD SMALL (NEGATIVE); URINE CLARITY TURBID (Clear); URINE COLOR YELLOW (YELLOW); URINE GLUCOSE (UA) NEG (Normal); URINE LEUKOCYTE ESTERASE NEG Leu/uL (Negative); URINE PROTEIN NEGATIVE (NEGATIVE); URINE UROBILINOGEN 0.2-1.0 mg/dL (0.2-1.0)
[2018-02-25] MEDS ORDERED: Ropivacaine 0.5% 30ML IV ONE (12:22)
[2018-02-25] MEDS ORDERED: Midazolam 2 MG/2 ML VIAL ONE (12:30)
[2018-02-25] MEDS ORDERED: Succinylcholine 200 mg/10 ml Inj IV ONE (12:30)
[2018-02-25] MEDS ORDERED: Propofol 10 mg/ml Inj (20 ML) ONE (12:30)
[2018-02-25] MEDS ORDERED: Lidocaine 4% (Laryng-O-Jet) Kit MM ONE (12:31)
[2018-02-25] MEDS ORDERED: Dexamethasone 4 mg/1 ml ONE (12:32)
[2018-02-25] MEDS ORDERED: Bupivacaine 0.5% Inj(30mL) ONE (12:32)
[2018-02-25] MEDS ORDERED: Rocuronium 10 mg/ml (5 ml) ONE ×2 (12:32→14:56)
[2018-02-25] MEDS ORDERED: Bacitracin Ointment 30 GM TUBE ONE (12:33)
[2018-02-25] MEDS ORDERED: Thrombin Topical 5,000 Int Units Spray Kit ONE (12:33)
[2018-02-25] MEDS ORDERED: Absorbable Gelatin Sponge Size 100 ONE (12:33)
[2018-02-25] MEDS ORDERED: Neostigmine 1:1000 (1 mg/ml) Inj ONE (12:34)
[2018-02-25] MEDS ORDERED: methylPREDNISolone Depo 80 mg/ml Inj ONE (12:38)
--- NOTE | 2018-02-25 12:38 | CP.PCM.HP ---
History of Present Illness - History of Present Illness History of Present Illness: Orthopedic H&P Patient is a 38 y/o male with no PMH, who presents with distal third tibia/ fibula fracture. 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 On 02/17/18 he was treated in the OR by Dr. Mancia with a closed reduction with a long leg cast secondary to severe swelling. It was found in the OR that all his lower leg compartment pressures were normal. Dr. Mancia proposed ORIF of tibia with IM nail and possible distal fibula plating once swelling improved. He presents today for this procedure. Currently, he has no complaints of pain. He has been NWB with crutches since the time of his injury. There are no associated symptoms or radiation of pain. He denies numbess and tingling of his LE. He also denies CP/SOB/N/V/D/QUINTEROS/dysuria/melena. Present on Admission - Present on Admission Any Indicators Present on Admission: No Review of Systems - Review of Systems All systems: reviewed and no additional remarkable complaints except Review of Systems: as per HPI Past Patient History - Past Medical History & Family History Past Medical History?: No Past Family History: Reviewed and not pertinent - Past Social History Smoking Status: Never Smoked Alcohol: None Drugs: Denies - CARDIAC Hx Cardiac Disorders: No - PULMONARY Hx Respiratory Disorders: No - NEUROLOGICAL Hx Neurological Disorder: No - HEENT Hx HEENT Problems: No - RENAL Hx Chronic Kidney Disease: No - ENDOCRINE/METABOLIC Hx Endocrine Disorders: No - HEMATOLOGICAL/ONCOLOGICAL Hx Blood Disorders: No - INTEGUMENTARY Hx Dermatological Problems: No - MUSCULOSKELETAL/RHEUMATOLOGICAL Hx Musculoskeletal Disorders: No Hx Falls: No - GASTROINTESTINAL Hx Gastrointestinal Disorders: No - GENITOURINARY/GYNECOLOGICAL Hx Genitourinary Disorders: No - PSYCHIATRIC Hx Emotional Abuse: No Hx Physical Abuse: No - SURGICAL HISTORY Hx Surgeries: No Hx Appendectomy: Yes (2017) Other/Comment: right finger amputation - ANESTHESIA Hx Anesthesia: Yes Hx Anesthesia Reactions: No Hx Malignant Hyperthermia: No Meds Allergies/Adverse Reactions: Allergies Allergy/AdvReac Type Severity Reaction Status Date / Time No Known Allergies Allergy Verified 02/25/18 12:15 Physical Exam - Constitutional Appears: No Acute Distress - Head Exam Head Exam: ATRAUMATIC - Eye Exam Eye Exam: EOMI, PERRL - ENT Exam ENT Exam: Mucous Membranes Moist - Respiratory Exam Respiratory Exam: NORMAL BREATHING PATTERN - Cardiovascular Exam Cardiovascular Exam: REGULAR RHYTHM - GI/Abdominal Exam GI & Abdominal Exam: Normal Bowel Sounds, Soft - Extremities Exam Additional comments: Focused exam RLE Long leg cast clean dry and intact. no swelling or lesions sensation intact SP/DP/TN motor intact EHL/FHL 2 sec cap refill - Neurological Exam Neurological exam: Alert, Oriented x3 - Psychiatric Exam Psychiatric exam: Normal Affect, Normal Mood Results - Vital Signs Recent Vital Signs: Last Vital Signs Temp 98.7 F 02/25/18 11:52 Pulse 81 02/25/18 12:07 Resp 20 02/25/18 11:52 BP 113/59 L 02/25/18 11:52 Pulse Ox 98 02/25/18 11:52 - Labs Labs: Laboratory Results - last 24 hr 02/25/18 11:50 Urine Color Yellow Urine Clarity Turbid Urine pH 7.0 Ur Specific [place] 1.019 Urine Protein Negative Urine Glucose (UA) Neg Urine Ketones Negative Urine Blood Small Urine Nitrate Negative Urine Bilirubin Negative Urine Urobilinogen 0.2-1.0 Ur Leukocyte Esterase Neg Urine RBC (Auto) 4 H Urine Microscopic WBC 9 H Amorphous Sediment Moderate H Urine Bacteria Occ H Assessment & Plan (1) Closed fracture of shaft of tibia with fibula Assessment and Plan: -Patient will undergo ORIF of Right tibia distal shaft fx with IM nail and possible distal fibula ORIF -Risks/benefits/adv/disadv of the procedure were explained to the patient in detail. He expresses understanding and agrees to proceed. -Above d/w Dr. Mancia in agreement Status: Acute
[2018-02-25] MEDS ORDERED: EPINEPHrine 1 mg/ml (1:1000) Inj ONE (12:40)
[2018-02-25] MEDS ORDERED: Bupivacaine HCl 0.25% PF (30 ml) Inj ONE (12:40)
[2018-02-25] MEDS ORDERED: Lidocaine 2% Inj (20ml) ONE (13:22)
[2018-02-25] MEDS ORDERED: Lactated Ringer's 1,000 ML IV ONE ×2 (13:50→15:40)
--- NOTE | 2018-02-25 17:01 | PCM.SURG1 ---
Surgeon's Initial Post Op Note - Surgeon's Notes Surgeon: Humza Mancia MD Wire Steward: Paul Mccullough PA-c, Isabel BULLOCK Type of Anesthesia: General Endo Anesthesia Administered By: Dr. Kraft Pre-Operative Diagnosis: Right comminuted distal third tibia fracture, right proximal and distal fibula fracture Operative Findings: as above Post-Operative Diagnosis: same Operation Performed: Right distal tibia fracture open reduction internal fixation with intermedullary nail, closed reduction of proximal and distal fibula fracture, allograft bone graft of proximal tibia, patella tendon repair, fluoroscopy and interperetation of radiological images, application of long leg splint Specimen/Specimens Removed: none Estimated Blood Loss: EBL {In ML}: 30 Blood Products Given: N/A Drains Used: No Drains Post-Op Condition: Good Date of Surgery/Procedure: 02/25/18 Time of Surgery/Procedure: 13:50 (incision time 14:55)
[2018-02-25] MEDS ORDERED: HYDROmorphone 0.5 mg/0.5 ml ISec IVP PRN (17:09)
--- NOTE | 2018-02-25 17:13 | PCM.ANESB3 ---
Femoral Nerve Block - Femoral Nerve Block Date of Procedure: 02/25/18 Anesthesiologist: maximilian Procedure Performed: Femoral Nerve Block Right - Procedure Femoral Nerve Block: The procedure was explained to the patient that it is for the post-operative pain management. Consent was obtained after a thorough discussion with the patient regarding the benefits and possible complications of local anesthetic block of the femoral nerve at the inguinal crease area. The patient was brought to the operating room and standard monitors were applied. Time-out was held with the circulating nurse to confirm the correct surgery and the appropriate block. After applying oxygen by nasal cannula and administering IV Sedation, patient was placed in supine position with fully extended lower extremities and the __right groin exposed. The femoral artery was then carefully palpated. The ultrasound transducer was then applied to this area in the transverse plane and the femoral nerve was visualized lateral to the femoral artery and underneath the fascia iliaca. After thorough identification, the inguinal crease area was prepped with Betadine solution three times and 1 % Lidocaine was injected subcutaneously for topical anesthesia. At this point, a #22 gauge Stimuplex 2-inch needle was inserted immediately lateral to the femoral artery pulse at the inguinal crease and advanced perpendicularly. The needle was inserted to the ultrasound transducer in-plane towards the femoral nerve in a [id number] direction. Needle advancement was performed carefully under direct ultrasound visualization. Nerve stimulator was used and twitch of the quadriceps muscle was obtained at current of _0.4____ MA. After negative aspiration, _10____cc of __0.50__% ropivicaine was injected and this was followed with __10____ cc of ____2___ % ___ lidocaine . Under ultrasound guidance the local anesthetics were observed spreading below fascia iliaca and around the femoral nerve. The needle was removed intact and sterile dressing was applied. The patient had stable vital signs, was conscious and in no apparent distress. The patient tolerated the femoral nerve block well with stable vital signs and was prepared for subsequent surgery.
--- NOTE | 2018-02-25 17:15 | PCM.ANESB2 ---
Popliteal Nerve Block - Popliteal Nerve Block Date of Procedure: 02/25/18 Anesthesiologist: Swapnil Pre-Procedure Diagnosis: right tibia fracture Post-Procedure Diagnosis: same - Procedure Popliteal Nerve Block: This procedure was explained to the patient that it is for post-operative pain management. Consent was obtained after a thorough discussion with the patient regarding the benefits and possible complications of local anesthetic block of the sciatic nerve at the popliteal level. The patient was brought to the operating room and standard monitors are applied. Time-out was held with the circulating nurse to confirm the correct surgery and the appropriate block. After applying oxygen by nasal cannula and administering IV Sedation, patient's operative leg was gently raised and supported and the groove in between the biceps femoris and vastus lateralis muscles was carefully palpated. The skin approximately 8cm above the popliteal crease was then marked. The ultrasound transducer was then applied to the posterior thigh approximately 8cm above the popliteal crease in the transverse plane and the sciatic nerve before its division was visualized lateral to the popliteal artery and in between the bicep femoris and semimembranosus/semitendinosus muscles. After identification, the lateral portion of the thigh was prepped with Betadine solution three times and Lidocaine 1% was injected subcutaneously for topical anesthesia. At this point, a # 21 gauge Stimuplex insulated 4 inch needle was inserted into pre-marked area and advanced in a perpendicular direction. The needle was inserted above the ultrasound transducer in-plane towards the sciatic nerve in a [id number] direction. Needle advancement was performed carefully under direct ultrasound visualization. Nerve stimulator was used and dorsiflexion of the __right___ foot was elicited at a current of __0.4___ MA. After repeated negative aspiration, _20___cc of _0.5____ % ___ropivivaine was injected and this was flowed with __10____ cc of __2____% _lidocaine . Under ultrasound guidance the local anesthetics were observed surrounding sciatic nerve . The needle was removed intact and sterile dressing was applied. The patient tolerated the popliteal nerve block well with stable vital signs and was subsequently prepared for the surgery.
--- NOTE | 2018-02-25 20:28 | CP.PCM.CON ---
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 Patient reports a right leg injury on 02/14/18 after a large wooden beam fell onto his right leg on a construction site at work. Patient was treated in OR 02/17/18, by Dr. Mancia with a closed reduction with a long leg cast secondary to severe swelling. Patient reports was evaluated in Ortho clinic this Saturday and scheduled for surgery today ( ORIF of tibia with IM nail ). Patient seen after surgery bedside and denies pain at this moment. Patient denies no other medical conditions. He denies fever, cough, SOB, n,v,d, abd pain, dysuria, headache, dizziness, confusion , weakness, numbness, tingling on his right leg. PMD: [facility]. Dr Andres Bernal, last visit 08/2017 PMHx: none Allergies: NKDA Meds: none PSurghx: Appendectomy 12/2016 PShx: + ETOH occs, neg rect drugs, cig. Code status: full code Review of Systems - Review of Systems All systems: reviewed and no additional remarkable complaints except - Cardiovascular Cardiovascular: As Per HPI - Respiratory Respiratory: As Per HPI - Gastrointestinal Gastrointestinal: As Per HPI - Musculoskeletal Musculoskeletal: Limited Range of Motion (due to right leg tibial fracture) Past Patient History - Past Medical History & Family History Past Medical History?: No Past Family History: Reviewed and not pertinent - Past Social History Smoking Status: Never Smoked Alcohol: None Drugs: Denies - CARDIAC Hx Cardiac Disorders: No - PULMONARY Hx Respiratory Disorders: No - NEUROLOGICAL Hx Neurological Disorder: No - HEENT Hx HEENT Problems: No - RENAL Hx Chronic Kidney Disease: No - ENDOCRINE/METABOLIC Hx Endocrine Disorders: No - HEMATOLOGICAL/ONCOLOGICAL Hx Blood Disorders: No - INTEGUMENTARY Hx Dermatological Problems: No - MUSCULOSKELETAL/RHEUMATOLOGICAL Hx Musculoskeletal Disorders: No Hx Falls: No - GASTROINTESTINAL Hx Gastrointestinal Disorders: No - GENITOURINARY/GYNECOLOGICAL Hx Genitourinary Disorders: No - PSYCHIATRIC Hx Emotional Abuse: No Hx Physical Abuse: No - SURGICAL HISTORY Hx Surgeries: No Hx Appendectomy: Yes (2016) Other/Comment: right finger amputation - ANESTHESIA Hx Anesthesia: Yes Hx Anesthesia Reactions: No Hx Malignant Hyperthermia: No Meds Allergies/Adverse Reactions: Allergies Allergy/AdvReac Type Severity Reaction Status Date / Time No Known Allergies Allergy Verified 02/25/18 12:15 - Medications Medications: Current Medications Acetaminophen (Tylenol 325mg Tab) 650 mg PO Q4 PRN PRN Reason: Fever 101 degrees fahrenheit Docusate Sodium (Colace) 100 mg PO BID [facility] Enoxaparin Sodium (Lovenox) 40 mg SC DAILY [facility] PRN Reason: Protocol Cefazolin Sodium 2 gm/ Sodium (Chloride) 100 mls @ 100 mls/hr IVPB Q8 [facility] PRN Reason: Protocol Stop: 02/26/18 17:59 Morphine Sulfate (Morphine) 2 mg IVP Q4 PRN PRN Reason: Pain, severe (8-10) Ondansetron HCl (Zofran Inj) 4 mg IVP ONCE PRN PRN Reason: Nausea/Vomiting Oxycodone/Acetaminophen (Percocet 5/325 Mg Tab) 2 tab PO Q4 PRN PRN Reason: Pain, severe (8-10) Stop: 02/28/18 17:05 Physical Exam - Constitutional Appears: Well, Non-toxic, No Acute Distress - Head Exam Head Exam: ATRAUMATIC, NORMOCEPHALIC - Eye Exam Eye Exam: EOMI, Normal appearance - ENT Exam ENT Exam: Mucous Membranes Moist - Neck Exam Neck exam: Positive for: Normal Inspection - Respiratory Exam Respiratory Exam: Clear to Auscultation Bilateral. absent: Rales, Rhonchi, Wheezes, Stridor - Cardiovascular Exam Cardiovascular Exam: REGULAR RHYTHM, +S1, +S2 - GI/Abdominal Exam GI & Abdominal Exam: Normal Bowel Sounds, Soft. absent: Rebound, Tenderness - Extremities Exam Extremities exam: Negative for: calf tenderness Additional comments: Right leg Long leg splint clean dry and intact. No toes swelling or lesions, sensation intact , motor intact, 2 sec cap refill - Back Exam Back exam: NORMAL INSPECTION - Neurological Exam Neurological exam: Alert, CN II-XII Intact, Oriented x3 - Psychiatric Exam Psychiatric exam: Normal Affect, Normal Mood - Skin Skin Exam: Normal Color Results - Vital Signs Recent Vital Signs: Last Vital Signs Temp 98.2 F 02/25/18 18:25 Pulse 75 02/25/18 18:25 Resp 18 02/25/18 18:25 BP 113/66 02/25/18 18:25 Pulse Ox 99 02/25/18 18:25 - Labs Labs: Laboratory Results - last 24 hr 02/25/18 02/25/18 11:50 13:10 Urine Color Yellow Urine Clarity Turbid Urine pH 7.0 Ur Specific [place] 1.019 Urine Protein Negative Urine Glucose (UA) Neg Urine Ketones Negative Urine Blood Small Urine Nitrate Negative Urine Bilirubin Negative Urine Urobilinogen 0.2-1.0 Ur Leukocyte Esterase Neg Urine RBC (Auto) 4 H Urine Microscopic WBC 9 H Amorphous Sediment Moderate H Urine Bacteria Occ H Blood Type O POSITIVE Antibody Screen Negative BBK History Checked Patient has bt Assessment & Plan - Assessment and Plan (Free Text) Plan: 38 yo ,m, no Significant PMHx admitted s/p tibia fx ORIF 1) Close fracture of shaft of tibia with fibula s/p ORIF POD#0 -s/p Right distal tibia fracture open reduction internal fixation with intermedullary nail, closed reduction of proximal and distal fibula fracture, allograft bone graft of proximal tibia, patella tendon repair, fluoroscopy and interpretation of radiological images, application of long leg splint -cefazolin 2 gm Q8h -Morphine 2mg IV Q4h PRN pain -Percocet 2 tab Po PRN pain -insentive spirometry -f/u CBC,BMP , repeat UA 2) DVT Prophylaxis -Lovenox 40 mg sc
[2018-02-25] MEDS: ceFAZolin 2 GM in Sodium Chloride 0.9% 100 ML IVPB SCH (23:10)
[2018-02-26] MEDS: Oxycodone/Acetaminophen 5/325 mg Tab PO PRN ×2 (03:06→10:36)
[2018-02-26] MEDS: ceFAZolin 2 GM in Sodium Chloride 0.9% 100 ML IVPB SCH ×2 (05:40→13:29)
--- NOTE | 2018-02-26 07:08 | RAD ---
PROCEDURE: Radiographs of the right tibia and fibula. HISTORY: s/p right tibia ORIF COMPARISON: Portable right tibia fibula 02/17/2018.. TECHNIQUE: Frontal and lateral views obtained. FINDINGS: BONES: Patient seen to be status post open reduction internal fixation of distal right tibial fracture via a lengthy intramedullary nail transfixed 0 2 screws proximally and a solitary screw distally, adequately reducing the comminuted fracture of the distal right tibial diaphysis. Skin rashmi are identified anteriorly at the level of the knee and proximal tibia and the distal tibia. Postop soft tissue changes are identified. Spiral fracture of the proximal and distal fibula are reiterated. No subluxation or dislocation. JOINT SPACES: As above. OTHER FINDINGS: None. IMPRESSION: Status post ORIF reducing distal right tibial fracture as discussed above.
[2018-02-26 07:19] LABS: SQUAMOUS EPITHIAL < 1 /hpf (0-5); URINE BILIRUBIN NEGATIVE (NEGATIVE); URINE BLOOD NEGATIVE (NEGATIVE); URINE CLARITY CLEAR (Clear); URINE COLOR YELLOW (YELLOW); URINE GLUCOSE (UA) NEG (Normal); URINE LEUKOCYTE ESTERASE NEG Leu/uL (Negative); URINE PROTEIN NEGATIVE (NEGATIVE); URINE UROBILINOGEN 0.2-1.0 mg/dL (0.2-1.0)
[2018-02-26] MEDS ORDERED: Enoxaparin 40 mg Syringe SC SCH (09:00)
--- NOTE | 2018-02-26 09:28 | CP.PCM.PN ---
Subjective - Date & Time of Evaluation Date of Evaluation: 02/26/18 Time of Evaluation: 08:10 Objective - Vital Signs/Intake and Output Vital Signs (last 24 hours): Temp Pulse Resp BP Pulse Ox 99.6 F 80 20 107/58 L 98 02/26/18 08:16 02/26/18 08:16 02/26/18 08:16 02/26/18 08:16 02/26/18 08:16 Intake and Output: 02/26/18 02/26/18 06:59 18:59 Intake Total 709 Output Total 600 Balance 109 - Medications Medications: Current Medications Acetaminophen (Tylenol 325mg Tab) 650 mg PO Q4 PRN PRN Reason: Fever 101 degrees fahrenheit Docusate Sodium (Colace) 100 mg PO BID [facility] Last Admin: 02/26/18 08:23 Dose: 100 mg Enoxaparin Sodium (Lovenox) 40 mg SC DAILY [facility] PRN Reason: Protocol Last Admin: 02/26/18 08:23 Dose: 40 mg Cefazolin Sodium 2 gm/ Sodium (Chloride) 100 mls @ 100 mls/hr IVPB Q8H [facility] PRN Reason: Protocol Stop: 02/26/18 15:29 Last Admin: 02/26/18 05:40 Dose: 100 mls/hr Morphine Sulfate (Morphine) 2 mg IVP Q4 PRN PRN Reason: Pain, severe (8-10) Ondansetron HCl (Zofran Inj) 4 mg IVP ONCE PRN PRN Reason: Nausea/Vomiting Oxycodone/Acetaminophen (Percocet 5/325 Mg Tab) 2 tab PO Q4 PRN PRN Reason: Pain, severe (8-10) Stop: 02/28/18 17:05 Last Admin: 02/26/18 03:06 Dose: 2 tab
--- NOTE | 2018-02-26 09:36 | OP ---
PROCEDURE DATE: 02/25/2018 PREOPERATIVE DIAGNOSES: 1. Angulated comminuted distal third tibia fracture, right. 2. Right proximal fibula fracture. 3. Right distal fibula fracture. OPERATIVE FINDINGS: 1. Angulated comminuted distal third tibia fracture, right. 2. Right proximal fibula fracture. 3. Right distal fibula fracture. POSTOPERATIVE DIAGNOSES: 1. Angulated comminuted distal third tibia fracture, right. 2. Right proximal fibula fracture. 3. Right distal fibula fracture. PROCEDURES PERFORMED: 1. Open reduction internal fixation of the distal third comminuted angulated distal tibia fracture with interlocking intramedullary nail. 2. Repair of patellar ligament. 3. Closed reduction of proximal and distal fibula fracture. 4. Allograft bone graft to the proximal tibia with reaming and autograft as well. 5. Application of Yinka Saldana compression dressing and posterior splint. 6. Positioning of fluoroscope interpretation of radiological images. SURGEON: Humza Mancia MD COMMUNICATIONS EQUIPMENT INSTALLER: Paul Mccullough PA-C SECOND CRATE ICER: Isabel Haynes, certified registered nursing assistant professor of nursing. ANESTHESIA: General endotracheal anesthesia, Dr. Kraft. COMPLICATIONS: No complications. DRAINS: No drains. SPECIMENS: No specimens. ESTIMATED BLOOD LOSS: Approximately 30 mL. BLOOD PRODUCTS: No blood products given. POSTOPERATIVE CONDITION: Stable. TIME OF PROCEDURE: Incision time 1455 hours, time in the room 1350 hours. 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 The beam struck the anterior aspect of the tibia with direct trauma. The patient presented to the emergency room at [facility]. The patient was stabilized with a posterior splint, elevated over the weekend because of swelling. The patient was taken to surgery. There was no clinical evidence of compartment syndrome. Compartment pressures were monitored on Saturday and found to be normal. Closed reduction was accomplished, found to be unacceptable. The patient presents now after healing of the skin. This was not open fracture, but there were abrasions after healing of the skin and marked diminution in swelling. Pros, cons, risks, and benefits of surgical approach were discussed at length with the patient through the culturally competent dental assistant teacher Shelby in the operating room. The possibility of mechanical failure, infection, thromboembolic disease, nerve injury, nonunion, malunion, secondary or tertiary surgery were discussed. The patient wished the surgery to be accomplished. OPERATIVE PROCEDURE: After having obtained informed consent in the above fashion through the culturally competent dental assistant teacher, after having identified side, site and procedure, and a critical pause/time-out, after the satisfactory induction of the anesthetic, the patient identified as Pawan Nolasco in the supine position with all bony prominences well padded, the right lower extremity was prepped and free draped in the usual fashion for lower extremity surgery. Under the surgeon's direction, the fluoroscope was positioned, video images were generated on AP and lateral image intensification views and therapeutic decisions were made therefrom. This having been accomplished with the fluoroscope positioned after sterilely prepping and draping, the lower extremity was exsanguinated using a 6-inch Esmarch bandage. The tourniquet, which had been applied, was inflated to 350 mmHg. Again after the satisfactory induction of general endotracheal anesthesia by Dr. Kraft, after having identified side, site, and procedure, and a critical pause/time-out, after the satisfactory induction of the anesthetic, after having obtained informed consent through the culturally competent dental assistant teacher, the patient identified as Pawan Nolasco in the supine position with all bony prominence well padded, the entry point of the tibia tubercle was identified. An incision was described two to three fingerbreadths distal to the tibial tuberosity to the distal aspect of the patella. The skin incision was carried down through the skin and subcutaneous tissue. The bursa was identified and partially excised. At this point in time, stay sutures were applied to protect the skin edges. This having been accomplished, the medial entry point to the patellar ligament was chosen for the introduction of the intramedullary appliance. A portion of the patellar ligament was elevated, was carefully retained at this point in time using a tanisha at a point of fingerbreadth above, the tibial tubercle and a fingerbreadth below the tibial plateau, a tanisha was used to open the canal. This having been accomplished, the guidewire was introduced. The tanisha and the reamer were used to open the canal. Verification of position was offered on image intensification views. At this point in time, using the triangle, with the knee flexed and the hamstrings relaxed, the tibia was reduced. At this point in time, the guidewire was placed and sequential reaming was carried out to 11.5 mm. The reaming accomplished under image intensification views with pulsed image intensification. This having been accomplished, verification of position was offered. It should be noted that when the tibia reduces and the reaming was accomplished, the fibula was reduced and closed as was the proximal fibula as well. This having been accomplished, sequential reaming was carried out to 11.5. The intramedullary trisha was introduced 10 mm and found to be acceptable. This having been accomplished, the interlocking screws were accomplished first proximally under image intensification views. Drilling was accomplished followed with sounding with the depth gauge and the appropriate sized screws were placed in the oblique proximal locking holes. Now the attention was turned distally where the anterior to posterior hole was identified. Approximately, 1-inch incision was accomplished superficial to the anterior to posterior aperture in the intramedullary trisha. Great care was taken to reflect the extensor tendons of the ankle and avoid any injury to the nerve. Drilling was accomplished sounding to 38 mm and the appropriate sized 36 mm screw was introduced. Verification of position was offered on AP and lateral image intensification views. Autograft bone grafting was accomplished at this point to the area of the nail entry point and the position was found to be excellent. At this point in time, using a Mitek suture anchor, the patellar ligament was repaired to the proximal aspect of the tibial plateau. The patellar ligament having been repaired also with interrupted FiberWire, the wound was thoroughly irrigated. Closure was in layers with interrupted Vicryl and rashmi. A Yinka Saldana compression dressing and posterior splint were applied. The patient's neurocirculatory status was intact in recovery. It should be noted that the progression of the operation of the operative goals will not be available or attainable without the help of Isabel Haynes, certified registered nursing assistant professor of nursing and Paul Mccullough PA-C. Humza Mancia MD
--- NOTE | 2018-02-26 11:04 | CP.PCM.PN ---
Subjective - Date & Time of Evaluation Date of Evaluation: 02/26/18 Time of Evaluation: 11:01 - Subjective Subjective: Patient seen and examined at bedside comfortable. Pain well controlled. Tolerating diet. + void, - BM. No acute events overnight. Objective - Vital Signs/Intake and Output Vital Signs (last 24 hours): Temp Pulse Resp BP Pulse Ox 99.6 F 80 20 107/58 L 98 02/26/18 08:16 02/26/18 08:16 02/26/18 08:16 02/26/18 08:16 02/26/18 08:16 Intake and Output: 02/26/18 02/26/18 06:59 18:59 Intake Total 709 Output Total 600 Balance 109 - Medications Medications: Current Medications Acetaminophen (Tylenol 325mg Tab) 650 mg PO Q4 PRN PRN Reason: Fever 101 degrees fahrenheit Docusate Sodium (Colace) 100 mg PO BID [facility] Last Admin: 02/26/18 08:23 Dose: 100 mg Enoxaparin Sodium (Lovenox) 40 mg SC DAILY [facility] PRN Reason: Protocol Last Admin: 02/26/18 08:23 Dose: 40 mg Cefazolin Sodium 2 gm/ Sodium (Chloride) 100 mls @ 100 mls/hr IVPB Q8H [facility] PRN Reason: Protocol Stop: 02/26/18 15:29 Last Admin: 02/26/18 05:40 Dose: 100 mls/hr Morphine Sulfate (Morphine) 2 mg IVP Q4 PRN PRN Reason: Pain, severe (8-10) Ondansetron HCl (Zofran Inj) 4 mg IVP ONCE PRN PRN Reason: Nausea/Vomiting Oxycodone/Acetaminophen (Percocet 5/325 Mg Tab) 2 tab PO Q4 PRN PRN Reason: Pain, severe (8-10) Stop: 02/28/18 17:05 Last Admin: 02/26/18 10:36 Dose: 2 tab - Extremities Exam Additional comments: RLE: Long leg splint CDI, dressing CDI, mild swelling sensation intact SP/DP/TN Motor intact EHL/FHL pedal pulses intact compartments soft/NT B/L Assessment and Plan (1) Closed fracture of shaft of tibia with fibula Assessment & Plan: POD#1 s/p R tibia fx ORIF doing well -pain control -PT/OT TTWB RLE -care as per medicine -clear to d/c to home once evaluated by PT -f/u with Dr. Mancia in 7-10 days -above d/w Dr. Mancia in agreement Status: Acute
--- NOTE | 2018-02-26 12:38 | CP.PCM.DIS ---
Provider - Provider Date of Admission: 02/25/18 17:04 Attending physician: Marlyn Gallagher MD Primary care physician: Roxi Jane MD Time Spent in preparation of Discharge (in minutes): 30 Diagnosis - Discharge Diagnosis (1) Closed fracture of shaft of tibia with fibula Status: Acute Hospital Course - Lab Results Lab Results: Most Recent Lab Values Urine Color Yellow (YELLOW) 02/26/18 06:15 Urine Clarity Clear (Clear) 02/26/18 06:15 Urine pH 7.0 (5.0-8.0) 02/26/18 06:15 Ur Specific [place] 1.017 (1.003-1.030) 02/26/18 06:15 Urine Protein Negative mg/dL (NEGATIVE) 02/26/18 06:15 Urine Glucose (UA) Neg mg/dL (Normal) 02/26/18 06:15 Urine Ketones Negative mg/dL (NEGATIVE) 02/26/18 06:15 Urine Blood Negative (NEGATIVE) 02/26/18 06:15 Urine Nitrate Negative (NEGATIVE) 02/26/18 06:15 Urine Bilirubin Negative (NEGATIVE) 02/26/18 06:15 Urine Urobilinogen 0.2-1.0 mg/dL (0.2-1.0) 02/26/18 06:15 Ur Leukocyte Esterase Neg [place]/uL (Negative) 02/26/18 06:15 Urine RBC (Auto) < 1 /hpf (0-3) 02/26/18 06:15 Urine Microscopic WBC < 1 /hpf (0-5) 02/26/18 06:15 Ur Squamous Epith Cells < 1 /hpf (0-5) 02/26/18 06:15 Amorphous Sediment Moderate /ul (<OCC) H 02/25/18 11:50 Urine Bacteria Occ (<OCC) H 02/25/18 11:50 Blood Type O POSITIVE 02/25/18 13:10 Antibody Screen Negative 02/25/18 13:10 BBK History Checked Patient has bt 02/25/18 13:10 - Hospital Course Hospital Course: 38 yo ,m, no Significant PMHx admitted for distal third tibia/fibula fracture of Rt. extremity underwent ORIF on 02/17/18 of tibia with IM nail and had a uncomplicated post-op course discharged the next day and cleared by Physical Therapy to follow up with Orthopedic surgeon Dr. Mancia. Discharge Exam - Head Exam Head Exam: ATRAUMATIC, NORMOCEPHALIC - Eye Exam Eye Exam: Normal appearance - ENT Exam ENT Exam: Mucous Membranes Moist - Respiratory Exam Respiratory Exam: Clear to PA & Lateral, NORMAL BREATHING PATTERN - Cardiovascular Exam Cardiovascular Exam: REGULAR RHYTHM, +S1, +S2 - GI/Abdominal Exam GI & Abdominal Exam: Normal Bowel Sounds, Soft. absent: Tenderness - Extremities Exam Extremities exam: normal capillary refill Additional comments: Rt. leg cast - Neurological Exam Neurological exam: Alert, CN II-XII Intact, Oriented x3 - Psychiatric Exam Psychiatric exam: Normal Affect, Normal Mood Discharge Plan - Follow Up Plan Condition: GOOD Disposition: HOME/ ROUTINE Instructions: Tibia Fracture, Fibula Fracture (DC) Additional Instructions: Please follow up with Dr. Anthony in clinic and with pmd at [address] [place] [address] in 7- 10 days. Referrals: Humza Mancia III, MD [Staff Provider] - Roxi Jane MD [Primary Care Provider] -
[2018-02-26 16:11] VITALS: BP 105/69; PULSE 77; RESP 18; TEMP 98.1; O2SAT 99
--- NOTE | 2018-02-26 16:43 | RAD ---
PROCEDURE: Fluoroscopy over 1 hour HISTORY: ORIF RIGHT TIB FIB COMPARISON: None TECHNIQUE: Standard protocol for this study/examination. FINDINGS: Submitted images from the current procedure: 7.0. IMPRESSION: Fluoroscopic assistance provided for open reduction internal fixation.
== END 2018-02-26 18:50 | disposition home or self-care (01) ==
LOC: H.OPSURG 10:54 → INTOOBSV 17:04 → H.MEDSURG1 17:04
PROVIDERS: ADMIT Family Medicine Geriatric Medicine; ATTEND Family Medicine Geriatric Medicine
DX: S82.251A Displaced comminuted fracture of shaft of right tibia, initial encounter for closed fracture (principal); S82.831A Other fracture of upper and lower end of right fibula, initial encounter for closed fracture; W20.8XXA Other cause of strike by thrown, projected or falling object, initial encounter; Y93.H3 Activity, building and construction; Y92.69 Other specified industrial and construction area as the place of occurrence of the external cause
CPT/HCPCS: 27788; 27827; 36415; 64447; 73590; 81003; 86850; 86900; 97116; 97161; C1713; C1769; C1789; G0378; G8978; G8979; G8980; J0330; J0690; J1650; J1885; J2250; J2704; J2710; J2765; J3010; J7030; J7120

== ENCOUNTER 2018-07-07 06:26 | Day surgery (SDC) | payer SELFPAY ==
[2018-02-24 10:36] VITALS: BMI 25.8
[2018-07-07] MEDS ORDERED: Lactated Ringer's 1,000 ML IV ONE (07:10)
[2018-07-07 07:18] VITALS: RESP 18
--- NOTE | 2018-07-07 07:53 | CP.SDSHP ---
Same Day Surgery H & P - History Proposed Procedure: Right ankle removal of painful hardware Pre-Op Diagnosis: Right ankle painful hardware - Previous Medical/Surgical History Pain: 6.Severe Pain Previous Surgical History: 02/25/18 R tibia ORIF with intermedullary nail - Allergies Allergies: Allergies No Known Allergies Allergy (Verified 07/07/18 06:54) - Current Medications Current Medications: none - Physical Exam General Appearance: NAD Vital Signs: Vital Signs 07/07/18 07/07/18 07:00 07:20 Temperature 98.2 F Pulse Rate 75 75 Respiratory 18 Rate Blood Pressure 115/68 O2 Sat by Pulse 97 Oximetry Mental Status: Alert & Oriented x3 Neuro: WNL Heart: WNL Lungs: WNL GI: WNL - {Optional Preform as Required} Abdomen: WNL Ortho: Other (RLE: proximal leg well healed scars, anterior ankle scar well healed, diffuse tenderness and swelling about ankle, limited ROM, motor intact EHL/FHL/TA/G, sensation intact SP/DP, pedal pulses intact, comps soft NT) ENT: WNL - Impression Impression: Patient is a 38 y/o male with no significant PMH, presents for elective removal of hardware to R ankle. 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 ORIF was performed on 02/25 and he participated in postop rehabilitation. Despite conservative management, the patient has continued to have pain at R ankle, especially with WB. Patient elected for surgery. Risks/benefits/alternatives discussed with patient who expresses understanding and agrees to proceed with above procedure. Pt. Evaluated Today:Candidate for Anesthesia & Procedure: Yes - Date & Time Date: 07/07/18 Time: 07:30 Short Stay Discharge - Short Stay Discharge Admitting Diagnosis/Reason for Visit: S82.441D Disposition: HOME/ ROUTINE Referrals: Feliciano Nolasco MD [Primary Care Provider] -
[2018-07-07] MEDS ORDERED: Lidocaine 4% (Laryng-O-Jet) Kit MM ONE (12:12)
[2018-07-07] MEDS ORDERED: Propofol 10 mg/ml Inj (20 ML) ONE (12:12)
[2018-07-07] MEDS ORDERED: Succinylcholine 200 mg/10 ml Inj IV ONE (12:12)
[2018-07-07] MEDS ORDERED: Midazolam 2 MG/2 ML VIAL ONE (12:12)
[2018-07-07] MEDS ORDERED: Lidocaine 1% 5ml Abboject IV ONE (12:12)
[2018-07-07] MEDS ORDERED: Bupivacaine HCl 0.5% PF (30 ml) Inj ONE (12:24)
[2018-07-07] MEDS ORDERED: methylPREDNISolone Depo 80 mg/ml Inj ONE (12:24)
[2018-07-07] MEDS ORDERED: Bacitracin Ointment 30 GM TUBE ONE (12:25)
[2018-07-07] MEDS ORDERED: ceFAZolin IV 1 gm in Dextrose 1 GM/50 ML BAG IVPB ONE (12:25)
[2018-07-07] MEDS ORDERED: Oxycodone/Acetaminophen 5/325 mg Tab PO PRN (13:36)
[2018-07-07] MEDS ORDERED: HYDROmorphone 0.5 mg/0.5 ml ISec IVP PRN (13:38)
[2018-07-07] MEDS ORDERED: Lactated Ringer's 1,000 ML IV SCH ×3 (13:45)
--- NOTE | 2018-07-07 13:51 | PCM.SURG1 ---
Surgeon's Initial Post Op Note - Surgeon's Notes Surgeon: Humza Mancia MD Adjunct Sociology Professor: Paul Mccullough PA-C Type of Anesthesia: General Endo Anesthesia Administered By: Sean BLAKE Pre-Operative Diagnosis: Right healing distal third tibia fracture Operative Findings: as above Post-Operative Diagnosis: as above Operation Performed: 1. Right ankle removal of hardware. 2. Dynamization of distal tibia fracture Specimen/Specimens Removed: Distal tibia screw Estimated Blood Loss: EBL {In ML}: 3 Blood Products Given: N/A Drains Used: No Drains Post-Op Condition: Good Date of Surgery/Procedure: 07/07/18 Time of Surgery/Procedure: 13:25 (enter room: 13:05)
[2018-07-07] MEDS ORDERED: HYDROmorphone 1 mg/ml ISec ONE (14:26)
[2018-07-07 16:21] VITALS: O2SAT 99
[2018-07-07 17:12] VITALS: BP 126/72; PULSE 72; TEMP 97.2
--- NOTE | 2018-07-07 17:34 | RAD ---
Date of service: 07/07/2018 PROCEDURE: Intraoperative Fluoroscopy. HISTORY: RIGHT TIB/FIB FINDINGS: Fluoroscopic assistance was provided for right leg surgery. Please refer to the operative report from FARZAD Rosario. 16.8 seconds of fluoro time was utilized with a cumulative radiation dose of 0.31 mGy.
--- NOTE | 2018-07-09 17:13 | OP ---
Copied To: Humza Mancia MD Attending MD: Humza Mancia MD PROCEDURE DATE: 07/07/2018 PREOPERATIVE DIAGNOSIS: Healing distal third tibia fracture with an element of delayed healing. POSTOPERATIVE DIAGNOSIS: Healing distal third tibia fracture with an element of delayed healing. OPERATIVE FINDINGS: Healing distal third midshaft tibia fracture, right tibia. OPERATIONS PERFORMED: 1. Removal of hardware deep, right tibia. 2. Dynamization of the distal tibia fracture. 3. Allograft bone graft. 4. Application of Yinka Saldana compression dressing. SURGEON: Humza Mancia MD POLYGRAPH EXAMINER: Paul Mccullough PA-C. ANESTHESIA: General endotracheal anesthesia. ANESTHESIA ADMINISTERED BY: Eugenio Estrada MD BLOOD LOSS: Approximately 3 mL. BLOOD PRODUCTS: No blood products given. DRAINS: No drains. POSTOPERATIVE CONDITION: Stable. TIME OF SURGERY: Time in the room 13:05, incision time 13:25. OPERATIVE INDICATION: Pawan Nolasco is a 38-year-old gentleman who was involved in a work-related injury at a housing site in [place]. The patient underwent open reduction and internal fixation with an interlocking intramedullary nail to the tibia. Closed reduction of the fibula was accomplished. The patient presents at this point in time with evidence of an essentially healed distal third tibia fracture and fibular fracture. Pros, cons, risks and benefits of hardware removal and dynamization were discussed. The patient is feeling pain distally, but more importantly dynamization will increase the chances of complete healing. Pros, cons, risks and benefits were discussed at length with the patient. Possibility of mechanical failure, infection, thromboembolic disease, delayed union or nonunion of the fibula was discussed. OPERATIVE PROCEDURE: After having obtained informed consent in the above fashion in the presence of a culturally competent state highway police officer, after having identified side, site and procedure and a critical pause/time-out, after the satisfactory induction of the anesthetic, the patient identified as Pawan Nolasco in the supine position with all bony prominences well padded. The right lower extremity was prepped and free draped in usual fashion for lower extremity surgery. The tourniquet had been applied, but was not yet inflated. After exsanguinating the limb using a 6-inch Esmarch bandage, the tourniquet which had been applied was inflated to 350 mmHg. Under the surgeon's direction, the fluoroscope was positioned, video images were generated, therapeutic decisions were made therefrom. The distal tibial interlocking screw was identified. The initial incision was identified. Using #10 blade, the skin incision was carried down through the skin and subcutaneous tissue. This having been accomplished, verification of position is offered on AP and lateral image intensification views. Great care was taken to dissect carefully. The tibialis anterior tendon was noted and was carefully reflected. All neurocirculatory structures are carefully protected. Screw was identified. The screw was removed. The wound was thoroughly irrigated. The tourniquet was deflated. Hemostasis was controlled. The screw hole was grafted with the DBX allograft bone graft. Closures in layers with interrupted Vicryl and rashmi. Yinka Saldana compression dressing was applied. OPERATIVE PROCEDURES: 1. Hardware removal, deep. 2. Dynamization distal third midshaft tibial fracture. 3. Allograft bone graft. 4. Application of compression dressing. 5. Positioning of fluoroscope and interpretation of video images. Humza Mancia MD
== END 2018-07-07 18:00 | disposition home or self-care (01) ==
LOC: H.OPSURG 06:26
PROVIDERS: ATTEND Orthopaedic Surgery
DX: S82.441A Displaced spiral fracture of shaft of right fibula, initial encounter for closed fracture (principal); X58.XXXA Exposure to other specified factors, initial encounter
CPT/HCPCS: 20680; 88304; 97161; C1713; G8978; G8979; G8980; J0330; J0690; J1170; J2250; J2704; J2765; J3010; J7120